=== PATIENT | male | born 1965 | race Caucasian/White ===

== ENCOUNTER → 2016-09-28 | Outpatient (CLI) | payer MEDICAID ==
[~2016-09-28] MED LIST: ALBU17IN INH; ALEV220T26 PO; AMLO5TAB2 PO; CARV12.5 PO; FLOV100A3 IN; LISI20TA3 PO; MULTCAP PO; OMEP40CA2 PO; SERT50TA PO; TRAZ50TA4 PO; VICO5TAB
== END ==
LOC: M OUTALCOH 08:13
PROVIDERS: ATTEND Psychiatry & Neurology Psychiatry
DX: Z13.9 Encounter for screening, unspecified (principal); F14.20 Cocaine dependence, uncomplicated; F10.20 Alcohol dependence, uncomplicated

== ENCOUNTER → 2016-10-01 | Outpatient (CLI) | payer OTHER ==
[2016-10-01 08:25] LABS: MEAN CORPUSCULAR HEMOGLOBIN 31.2 pg (27.0-33.0); MEAN CORPUSCULAR HGB CONC 32.5 g/dl (32.0-36.5); MEAN CORPUSCULAR VOLUME 95.8 fl (80.0-96.0); RED CELL DISTRIBUTION WIDTH 12.3 % (11.5-14.5); WHITE BLOOD COUNT 8.5 K/mm3 (4.0-10.0)
[2016-10-01 09:00] LABS: ALBUMIN 3.9 GM/DL (3.2-5.2); ALBUMIN/GLOBULIN RATIO 1.15 (1.00-1.93); ALKALINE PHOSPHATASE 62 U/L (45-117); ALT/SGPT 47 U/L (12-78); ANION GAP 7 MEQ/L (8-16); AST/SGOT 20 U/L (15-37); BILIRUBIN,TOTAL 0.3 MG/DL (0.2-1.0); BLOOD UREA NITROGEN 18 MG/DL (7-18); CALCIUM LEVEL 8.9 MG/DL (8.5-10.1); CARBON DIOXIDE LEVEL 31 MEQ/L (21-32); CHLORIDE LEVEL 101 MEQ/L (98-107); GLOMERULAR FILTRATION RATE > 60.0 (>56); GLUCOSE, FASTING 139 MG/DL (70-105); POTASSIUM SERUM 4.5 MEQ/L (3.5-5.1); SODIUM LEVEL 139 MEQ/L (136-145); TOTAL PROTEIN 7.3 GM/DL (6.4-8.2)
[2016-10-04 00:06] LABS: BENZODIAZEPINES, URINE SCREEN Negative ng/mL (Cutoff=200); METHADONE, URINE SCREEN Negative ng/mL (Cutoff=300)
== END ==
LOC: M LAB 07:59
PROVIDERS: ATTEND Student in an Organized Health Care Education/Training Program
DX: F10.10 Alcohol abuse, uncomplicated (principal); Z79.899 Other long term (current) drug therapy; Z87.898 Personal history of other specified conditions

== ENCOUNTER → 2016-10-22 | Outpatient (CLI) | payer MEDICAID, OTHER | LOC: M LAB 09:58 | PROVIDERS: ATTEND Hospitalist | DX: R76.8 Other specified abnormal immunological findings in serum (principal) ==

== ENCOUNTER → 2016-10-28 | Outpatient (RCR) | payer MEDICAID | LOC: M OUTALCOH 09-30 15:30 | PROVIDERS: ATTEND Psychiatry & Neurology Psychiatry | DX: F10.20 Alcohol dependence, uncomplicated (principal) ==

== ENCOUNTER → 2016-11-27 | Outpatient (RCR) | payer MEDICAID ==
[~2016-11-27] MED LIST changes: +TRAZ50TA11 PO; -TRAZ50TA4 PO
== END ==
LOC: M OUTALCOH 10-29 13:52
PROVIDERS: ATTEND Psychiatry & Neurology Psychiatry
DX: F14.20 Cocaine dependence, uncomplicated (principal); F10.20 Alcohol dependence, uncomplicated; F17.200 Nicotine dependence, unspecified, uncomplicated

== ENCOUNTER 2016-12-25 15:00 | Outpatient (RCR) | payer MEDICAID | END 2016-12-28 | LOC: M OUTALCOH 15:00 | PROVIDERS: ATTEND Psychiatry & Neurology Psychiatry | DX: F14.20 Cocaine dependence, uncomplicated (principal); F10.20 Alcohol dependence, uncomplicated; F17.200 Nicotine dependence, unspecified, uncomplicated ==

== ENCOUNTER 2017-01-25 16:00 | Outpatient (RCR) | payer MEDICAID | END 2017-01-28 | LOC: M OUTALCOH 16:00 | PROVIDERS: ATTEND Psychiatry & Neurology Psychiatry | DX: F14.20 Cocaine dependence, uncomplicated (principal); F10.20 Alcohol dependence, uncomplicated; F17.200 Nicotine dependence, unspecified, uncomplicated ==

== ENCOUNTER → 2017-02-22 | Outpatient (CLI) | payer OTHER ==
[2017-02-24 10:41] LABS: HCV RNA (INTERNATIONAL UNITS) 10228000 IU/mL (.); HEPATITIS C QUANTITATION See Final Results IU/mL (.)
[2017-02-25 08:06] LABS: ALT 50 IU/L (0-55); GGT 26 IU/L (0-65); HAPTOGLOBIN 299 mg/dL (34-200); NECROINFLAM SCORE 0.29 (0.00-0.17); NECROINFLAMM GRADE A1-Minimal activity (.); TOTAL BILIRUBIN 0.4 mg/dL (0.0-1.2)
== END ==
LOC: M LAB 09:59
PROVIDERS: ATTEND Internal Medicine Infectious Disease
DX: B18.2 Chronic viral hepatitis C (principal)

== ENCOUNTER → 2017-02-22 | Outpatient (CLI) | payer OTHER ==
[2017-02-22 10:46] LABS: INR 0.95
[2017-02-22 11:09] LABS: ALBUMIN 3.8 GM/DL (3.2-5.2); ALBUMIN/GLOBULIN RATIO 1.03 (1.00-1.93); BILIRUBIN,DIRECT 0.2 MG/DL (0.0-0.2); BILIRUBIN,TOTAL 0.5 MG/DL (0.2-1.0); TOTAL PROTEIN 7.5 GM/DL (6.4-8.2)
== END ==
LOC: M LAB 10:02
PROVIDERS: ATTEND Student in an Organized Health Care Education/Training Program
DX: R73.9 Hyperglycemia, unspecified (principal)

== ENCOUNTER 2017-02-26 09:00 | Outpatient (RCR) | payer MEDICAID | END 2017-02-27 | LOC: M OUTALCOH 09:00 | PROVIDERS: ATTEND Psychiatry & Neurology Psychiatry | DX: F10.20 Alcohol dependence, uncomplicated (principal); F14.20 Cocaine dependence, uncomplicated; F17.210 Nicotine dependence, cigarettes, uncomplicated ==

== ENCOUNTER → 2017-04-12 | Outpatient (REF) | payer OTHER | LOC: M SFHCPLAZ 09:02 | PROVIDERS: ATTEND Internal Medicine Infectious Disease | DX: B18.2 Chronic viral hepatitis C (principal) ==

== ENCOUNTER 2017-04-13 09:00 | Outpatient (RCR) | payer MEDICAID | END 2017-04-29 | LOC: M OUTALCOH 09:00 | PROVIDERS: ATTEND Psychiatry & Neurology Psychiatry | DX: F14.20 Cocaine dependence, uncomplicated (principal); F10.20 Alcohol dependence, uncomplicated; F17.200 Nicotine dependence, unspecified, uncomplicated ==

== ENCOUNTER 2017-04-30 15:00 | Outpatient (RCR) | payer MEDICAID | END 2017-05-30 | LOC: M OUTALCOH 15:00 | DX: F14.20 Cocaine dependence, uncomplicated (principal); F10.20 Alcohol dependence, uncomplicated; F17.200 Nicotine dependence, unspecified, uncomplicated ==

== ENCOUNTER → 2017-04-30 | Outpatient (CLI) | payer OTHER ==
[2017-04-30 11:53] LABS: ALBUMIN 3.9 GM/DL (3.2-5.2); ALKALINE PHOSPHATASE 59 U/L (45-117); ALT/SGPT 38 U/L (12-78); AST/SGOT 18 U/L (7-37); BILIRUBIN,DIRECT < 0.1 MG/DL (0.0-0.2); BILIRUBIN,TOTAL 0.4 MG/DL (0.2-1.0); TOTAL PROTEIN 7.8 GM/DL (6.4-8.2)
[2017-05-04 00:08] LABS: HEPATITIS C QUANTITATION HCV Not Detected IU/mL (.)
== END ==
LOC: M LAB 10:47
PROVIDERS: ATTEND Internal Medicine Infectious Disease
DX: B18.2 Chronic viral hepatitis C (principal)

== ENCOUNTER 2017-06-09 13:03 | Outpatient (RCR) | payer MEDICAID | END 2017-06-30 | LOC: M OUTALCOH 13:03 | DX: F14.20 Cocaine dependence, uncomplicated (principal); F10.20 Alcohol dependence, uncomplicated; F17.200 Nicotine dependence, unspecified, uncomplicated ==

== ENCOUNTER 2017-07-07 14:00 | Outpatient (RCR) | payer MEDICAID | END 2017-07-28 | LOC: M OUTALCOH 07-21 13:00 | DX: F14.20 Cocaine dependence, uncomplicated (principal); F10.20 Alcohol dependence, uncomplicated; F17.200 Nicotine dependence, unspecified, uncomplicated ==

== ENCOUNTER 2017-08-04 11:21 | Outpatient (RCR) | payer MEDICAID | END 2017-08-28 | LOC: M OUTALCOH 08-17 11:00 | DX: F14.20 Cocaine dependence, uncomplicated (principal); F10.20 Alcohol dependence, uncomplicated; F17.200 Nicotine dependence, unspecified, uncomplicated ==

== ENCOUNTER 2017-09-01 13:22 | Outpatient (RCR) | payer MEDICAID | END 2017-09-27 | LOC: M OUTALCOH 13:22 | DX: F14.20 Cocaine dependence, uncomplicated (principal); F10.20 Alcohol dependence, uncomplicated; F17.200 Nicotine dependence, unspecified, uncomplicated ==

== ENCOUNTER 2017-09-24 11:54 | Day surgery (SDC) | payer OTHER ==
[2017-09-24] MEDS: NS 1,000 ML IV (12:30)
[2017-09-24] MEDS ORDERED: fentaNYL 100 MCG/2 ML INJECTION (J3010) As Ordered (13:29)
[2017-09-24] MEDS ORDERED: PROPOFOL 500 MG/50 ML VIAL As Ordered ×2 (13:29→13:50)
[2017-09-24] MEDS ORDERED: PROPOFOL 200 MG/20 ML VIAL As Ordered (13:29)
[2017-09-24] MEDS ORDERED: LIDOCAINE 2% INJ 100 MG/5 ML SDV (FOR ANES.) As Ordered (13:29)
== END 2017-09-24 14:22 | disposition home or self-care (01) ==
LOC: M OPP 11:54
DX: Z12.11 Encounter for screening for malignant neoplasm of colon (principal); D12.3 Benign neoplasm of transverse colon; K62.1 Rectal polyp; K64.8 Other hemorrhoids; R12 Heartburn; I10 Essential (primary) hypertension; R73.03 Prediabetes; K21.9 Gastro-esophageal reflux disease without esophagitis; Z86.19 Personal history of other infectious and parasitic diseases; R06.02 Shortness of breath; F10.21 Alcohol dependence, in remission; F41.9 Anxiety disorder, unspecified; F32.9 Major depressive disorder, single episode, unspecified; M19.90 Unspecified osteoarthritis, unspecified site; M54.89 Other dorsalgia; J44.9 Chronic obstructive pulmonary disease, unspecified; F17.210 Nicotine dependence, cigarettes, uncomplicated; Z79.899 Other long term (current) drug therapy; Z80.42 Family history of malignant neoplasm of prostate; Z80.0 Family history of malignant neoplasm of digestive organs
CPT/HCPCS: 45385

== ENCOUNTER 2017-10-01 15:02 | Outpatient (RCR) | payer OTHER | END 2017-10-28 | LOC: M OUTALCOH 10-27 14:00 | DX: F14.20 Cocaine dependence, uncomplicated (principal); F10.20 Alcohol dependence, uncomplicated; F17.200 Nicotine dependence, unspecified, uncomplicated ==

== ENCOUNTER 2017-11-17 15:11 | Outpatient (RCR) | payer MEDICAID | END 2017-11-27 | LOC: M OUTALCOH 15:11 | DX: F14.20 Cocaine dependence, uncomplicated (principal); F10.20 Alcohol dependence, uncomplicated; F17.200 Nicotine dependence, unspecified, uncomplicated ==

== ENCOUNTER 2017-12-02 14:59 | Outpatient (RCR) | payer MEDICAID | END 2017-12-28 | LOC: M OUTALCOH 12-15 13:00 | DX: F14.20 Cocaine dependence, uncomplicated (principal); F10.20 Alcohol dependence, uncomplicated; F17.200 Nicotine dependence, unspecified, uncomplicated ==

== ENCOUNTER → 2017-12-11 | Outpatient (CLI) | payer OTHER ==
[2017-12-11 09:54] LABS: ALBUMIN 3.6 GM/DL (3.2-5.2); ALBUMIN/GLOBULIN RATIO 0.95 (1.00-1.93); ALKALINE PHOSPHATASE 60 U/L (45-117); ALT/SGPT 52 U/L (12-78); ANION GAP 11 MEQ/L (8-16); AST/SGOT 31 U/L (7-37); BILIRUBIN,TOTAL 0.6 MG/DL (0.2-1.0); BLOOD UREA NITROGEN 11 MG/DL (7-18); CALCIUM LEVEL 8.5 MG/DL (8.5-10.1); CARBON DIOXIDE LEVEL 29 MEQ/L (21-32); CHLORIDE LEVEL 102 MEQ/L (98-107); CREATININE FOR GFR 0.99 MG/DL (0.70-1.30); GLOMERULAR FILTRATION RATE > 60.0 (>56); GLUCOSE, FASTING 118 MG/DL (70-100); POTASSIUM SERUM 3.6 MEQ/L (3.5-5.1); SODIUM LEVEL 142 MEQ/L (136-145); TOTAL PROTEIN 7.4 GM/DL (6.4-8.2)
[2017-12-11 09:57] LABS: CREATININE, URINE 27.7 MG/DL; MAU/CREAT RATIO 971.1 MCG/MG (0.0-30.0)
[2017-12-11 10:29] LABS: ESTIMATED AVERAGE GLUCOSE 157 MG/DL (60-110); HEMOGLOBIN A1c 7.1 %
[2017-12-13 14:08] LABS: RUBELLA IgG QUALITATIVE IMMUNE (IMMUNE)
== END ==
LOC: M LAB 08:09
DX: E11.9 Type 2 diabetes mellitus without complications (principal)
CPT/HCPCS: 80053

== ENCOUNTER 2017-12-13 14:03 | Outpatient (RCR) | payer OTHER | END 2017-12-28 | LOC: M PT 14:03 | DX: Z51.89 Encounter for other specified aftercare (principal); G89.29 Other chronic pain | CPT/HCPCS: 97010 ==

== ENCOUNTER 2017-12-30 08:24 | Outpatient (RCR) | payer OTHER | END 2018-01-28 | LOC: M PT 08:24 | DX: Z51.89 Encounter for other specified aftercare (principal); G89.29 Other chronic pain | CPT/HCPCS: 97110 ==

== ENCOUNTER → 2017-12-30 | Outpatient (REF) | payer OTHER ==
[2017-12-30 19:08] LABS: TOTAL PROTEIN,RANDOM URINE 12.6 MG/DL (0.0-12.0)
== END ==
LOC: M SFHCPLAZ 09:53
DX: E11.9 Type 2 diabetes mellitus without complications (principal)
CPT/HCPCS: 84156

== ENCOUNTER → 2018-04-06 | Outpatient (REF) | payer OTHER ==
[2018-04-06 12:09] LABS: HEMATOCRIT 48.7 % (42.0-52.0); HEMOGLOBIN 16.3 g/dl (13.5-17.5); MEAN CORPUSCULAR HEMOGLOBIN 31.7 pg (27.0-33.0); MEAN CORPUSCULAR HGB CONC 33.5 g/dl (32.0-36.5); MEAN CORPUSCULAR VOLUME 94.7 fl (80.0-96.0); PLATELET COUNT, AUTOMATED 260 10^3/uL (150-450); RED BLOOD COUNT 5.14 10^6/uL (4.30-6.10); RED CELL DISTRIBUTION WIDTH 13.6 % (11.5-14.5); WHITE BLOOD COUNT 15.9 10^3/uL (4.0-10.0)
[2018-04-06 12:20] LABS: INR 0.95; PROTHROMBIN TIME 12.7 SECONDS (12.1-14.4)
[2018-04-06 12:21] LABS: PARTIAL THROMBOPLASTIN TIME 31.8 SECONDS (25.4-37.6)
[2018-04-06 12:44] LABS: ALBUMIN 4.3 GM/DL (3.2-5.2); ALBUMIN/GLOBULIN RATIO 1.13 (1.00-1.93); ALKALINE PHOSPHATASE 70 U/L (45-117); ALT/SGPT 34 U/L (12-78); ANION GAP 8 MEQ/L (8-16); AST/SGOT 19 U/L (7-37); BILIRUBIN,TOTAL 0.5 MG/DL (0.2-1.0); BLOOD UREA NITROGEN 17 MG/DL (7-18); CALCIUM LEVEL 9.9 MG/DL (8.5-10.1); CARBON DIOXIDE LEVEL 30 MEQ/L (21-32); CHLORIDE LEVEL 100 MEQ/L (98-107); CREATININE FOR GFR 0.98 MG/DL (0.70-1.30); GLOMERULAR FILTRATION RATE > 60.0 (>56); GLUCOSE, FASTING 125 MG/DL (70-100); SODIUM LEVEL 138 MEQ/L (136-145); TOTAL PROTEIN 8.1 GM/DL (6.4-8.2)
[2018-04-06 13:32] LABS: HEPATITIS A ANTIBODY IGM NEGATIVE (NEGATIVE)
[2018-04-06 13:35] LABS: ESTIMATED AVERAGE GLUCOSE 143 MG/DL (60-110); HEMOGLOBIN A1c 6.6 %
[2018-04-09 00:06] LABS: HBV HBV DNA not detected IU/mL (.); HEPATITIS C QUANTITATION HCV Not Detected IU/mL (.)
== END ==
LOC: M SFHCPLAZ 10:25
DX: R73.03 Prediabetes (principal); B18.2 Chronic viral hepatitis C; K62.5 Hemorrhage of anus and rectum

== ENCOUNTER 2018-04-19 09:54 | Emergency (ER) | payer OTHER, MEDICAID ==
[2018-04-19 10:55] LABS: BASO % 0.4 % (0.0-1.0); EOS # 0.1 10^3/uL (0.0-0.50); EOS % 0.8 % (0.0-3.0); HEMATOCRIT 43.7 % (42.0-52.0); HEMOGLOBIN 14.6 g/dl (13.5-17.5); IMMATURE GRANULOCYTE % 0.4 % (0-3.0); LYMPH # 2.7 10^3/uL (1.5-4.5); LYMPH % 27.1 % (24.0-44.0); MEAN CORPUSCULAR HEMOGLOBIN 31.3 pg (27.0-33.0); MEAN CORPUSCULAR HGB CONC 33.4 g/dl (32.0-36.5); MEAN CORPUSCULAR VOLUME 93.8 fl (80.0-96.0); MONO # 0.7 10^3/uL (0.0-0.8); NEUTROPHILS # 6.3 10^3/uL (1.8-7.7); NEUTROPHILS % 64.3 % (36.0-66.0); PLATELET COUNT, AUTOMATED 191 10^3/uL (150-450); RED BLOOD COUNT 4.66 10^6/uL (4.30-6.10); RED CELL DISTRIBUTION WIDTH 13.4 % (11.5-14.5); WHITE BLOOD COUNT 9.8 10^3/uL (4.0-10.0)
[2018-04-19 11:03] LABS: ANION GAP 6 MEQ/L (8-16); BLOOD UREA NITROGEN 11 MG/DL (7-18); CALCIUM LEVEL 9.1 MG/DL (8.5-10.1); CARBON DIOXIDE LEVEL 30 MEQ/L (21-32); CHLORIDE LEVEL 103 MEQ/L (98-107); CPK CREATINE PHOSPHOKINASE 77 U/L (39-308); CREATININE FOR GFR 0.88 MG/DL (0.70-1.30); GLOMERULAR FILTRATION RATE > 60.0 (>56); GLUCOSE, FASTING 126 MG/DL (70-100); MB/CK RELATIVE INDEX 1.69 (< OR =4); POTASSIUM SERUM 4.3 MEQ/L (3.5-5.1); SODIUM LEVEL 139 MEQ/L (136-145); TROPONIN I < 0.02 NG/ML (< 0.10)
== END 2018-04-19 12:16 | disposition left against medical advice (07) ==
LOC: M ED 09:54
DX: R07.9 Chest pain, unspecified (principal); E11.9 Type 2 diabetes mellitus without complications; I10 Essential (primary) hypertension; K21.9 Gastro-esophageal reflux disease without esophagitis; J44.9 Chronic obstructive pulmonary disease, unspecified; Z79.899 Other long term (current) drug therapy
CPT/HCPCS: 93005

== ENCOUNTER 2018-10-05 08:34 | Emergency (ER) | payer MEDICAID, OTHER ==
[~2018-10-05] VITALS: Ht 188 cm; Wt 125.7 kg
[~2018-10-05 08:34] MED LIST changes: -AMLO5TAB2 PO; +AMLO5TAB6 PO; +OMEP20CA3 PO; +SERT-141 PO; -SERT50TA PO; +TRAZ-160 PO; -TRAZ50TA11 PO; +VIIB40TA PO
[2018-10-05] MEDS ORDERED: LISINOPRIL 20 MG TAB PO ONE (09:30)
[2018-10-05] MEDS ORDERED: INDOMETHACIN 25 MG CAP PO ONE (09:30)
[2018-10-05] MEDS ORDERED: hydroCHLOROthiazide 25 MG TAB PO ONE (09:30)
[2018-10-05 09:40] VITALS: BP 180/100
[2018-10-05 09:44] LABS: HEMATOCRIT 49.4 % (42.0-52.0); HEMOGLOBIN 16.2 g/dl (13.5-17.5); MEAN CORPUSCULAR HEMOGLOBIN 30.9 pg (27.0-33.0); MEAN CORPUSCULAR HGB CONC 32.8 g/dl (32.0-36.5); MEAN CORPUSCULAR VOLUME 94.3 fl (80.0-96.0); PLATELET COUNT, AUTOMATED 259 10^3/uL (150-450); RED BLOOD COUNT 5.24 10^6/uL (4.30-6.10); WHITE BLOOD COUNT 11.1 10^3/uL (4.0-10.0)
[2018-10-05 10:09] LABS: BLOOD UREA NITROGEN 9 MG/DL (7-18); CREATININE FOR GFR 0.88 MG/DL (0.70-1.30); GLOMERULAR FILTRATION RATE > 60.0 (>56); GLUCOSE, FASTING 139 MG/DL (70-100)
[2018-10-05 10:10] LABS: CALCIUM LEVEL 9.1 MG/DL (8.5-10.1); CARBON DIOXIDE LEVEL 28 MEQ/L (21-32); CHLORIDE LEVEL 105 MEQ/L (98-107); POTASSIUM SERUM 4.3 MEQ/L (3.5-5.1); SODIUM LEVEL 138 MEQ/L (136-145); URIC ACID 7.6 MG/DL (3.5-7.2)
--- NOTE | 2018-10-05 10:22 | REP ---
RIGHT FOOT, FOUR VIEWS: Four views of the right foot performed. No acute fracture or dislocation is seen. There is a small inferior calcaneal spur. There is mild joint space narrowing and subchondral sclerosis at the 1st metatarsophalangeal joint. IMPRESSION: Mild degenerative changes. Electronically Signed by Bandar Multani MD 10/05/2018 03:38 P
[2018-10-05] MEDS ORDERED: INDO25CA PO (10:27)
[2018-10-05 10:38] VITALS: BP 160/98
== END 2018-10-05 10:40 | disposition home or self-care (01) ==
LOC: M ED 08:34
DX: M10.9 Gout, unspecified (principal); E11.9 Type 2 diabetes mellitus without complications; J45.909 Unspecified asthma, uncomplicated; I10 Essential (primary) hypertension; K21.9 Gastro-esophageal reflux disease without esophagitis; Z79.899 Other long term (current) drug therapy; Z79.84 Long term (current) use of oral hypoglycemic drugs; F17.210 Nicotine dependence, cigarettes, uncomplicated

== ENCOUNTER 2018-10-13 13:51 | Inpatient (IN) | payer MEDICAID, OTHER ==
[~2018-10-13] VITALS: Ht 188 cm; Wt 122.3 kg
[~2018-10-13 13:51] MED LIST changes: +INDO25CA PO; +NICOTINE 21MG/24HR 1 EA TRANSDERMAL TD SCH
[2018-10-13 14:28] LABS: HEMATOCRIT 49.4 % (42.0-52.0); HEMOGLOBIN 16.3 g/dl (13.5-17.5); MEAN CORPUSCULAR HEMOGLOBIN 30.3 pg (27.0-33.0); MEAN CORPUSCULAR VOLUME 91.8 fl (80.0-96.0); PLATELET COUNT, AUTOMATED 236 10^3/uL (150-450); RED BLOOD COUNT 5.38 10^6/uL (4.30-6.10); WHITE BLOOD COUNT 8.1 10^3/uL (4.0-10.0)
[2018-10-13] MEDS ORDERED: NICOTINE 21MG/24HR 1 EA TRANSDERMAL TD ONE (15:15)
[2018-10-13 15:37] LABS: AMPHETAMINES LEVEL URINE NEGATIVE (NEGATIVE); BARBITURATES URINE NEGATIVE (NEGATIVE); BENZODIAZEPINES URINE NEGATIVE (NEGATIVE); CANNABINOIDS URINE NEGATIVE (NEGATIVE); COCAINE METABOLITE URINE NEGATIVE (NEGATIVE); METHADONE URINE NEGATIVE (NEGATIVE); OPIATES URINE NEGATIVE (NEGATIVE); PHENCYCLIDINE URINE NEGATIVE (NEGATIVE)
[2018-10-13 15:41] LABS: ACETAMINOPHEN LEVEL < 2.0 UG/ML (10.0-30.0); ALBUMIN 4.1 GM/DL (3.2-5.2); ALT/SGPT 60 U/L (12-78); BILIRUBIN,DIRECT 0.1 MG/DL (0.0-0.2); BILIRUBIN,TOTAL 0.3 MG/DL (0.2-1.0); BLOOD UREA NITROGEN 14 MG/DL (7-18); CALCIUM LEVEL 8.9 MG/DL (8.5-10.1); CARBON DIOXIDE LEVEL 31 MEQ/L (21-32); CHLORIDE LEVEL 104 MEQ/L (98-107); ETHYL ALCOHOL (ETHANOL) 0.213 % (0.000-0.010); GLOMERULAR FILTRATION RATE > 60.0 (>56); GLUCOSE, FASTING 166 MG/DL (70-100); POTASSIUM SERUM 3.9 MEQ/L (3.5-5.1); SALICYLATE LEVEL 2.5 MG/DL (5.0-30.0); SODIUM LEVEL 141 MEQ/L (136-145); THYROID STIMULATING HORMONE 0.801 uIU/ML (0.358-3.740); TOTAL PROTEIN 7.5 GM/DL (6.4-8.2)
[2018-10-13] MEDS ORDERED: LORazepam 2 MG/ML VIAL (J2060) IM STA (16:39)
[2018-10-13] MEDS ORDERED: diphenhydrAMINE INJ 50MG/ML VIAL (J1200) IM STA (16:39)
[2018-10-13] MEDS ORDERED: ALBUTEROL 90 MCG/ACT 8GM HFA INHALER INH PRN (21:00)
[2018-10-13] MEDS ORDERED: OXAZEPAM 15 MG CAP PO ONE (21:00)
[2018-10-13] MEDS ORDERED: OLANZapine ORAL DISINTEGRATING TAB 5MG PO PRN (21:00)
[2018-10-13] MEDS ORDERED: MAALOX 30 ML SUSP *UDC PO PRN (21:00)
[2018-10-13] MEDS ORDERED: LORazepam 2 MG TAB PO PRN (21:00)
[2018-10-13] MEDS ORDERED: MOM 30ML SUSPENSION UDC PO PRN (21:00)
[2018-10-13 22:00] VITALS: BP 163/96
[2018-10-13] MEDS ORDERED: INDO25CA PO (22:11)
[2018-10-13] MEDS ORDERED: VENTAER INH (22:11)
[2018-10-13] MEDS ORDERED: METF500T4 PO (22:16)
[2018-10-13] MEDS ORDERED: SERT-155 PO (22:16)
[2018-10-13] MEDS ORDERED: ARNU1INH PO (22:16)
[2018-10-13] MEDS ORDERED: QUET5TAB PO (22:16)
[2018-10-13] MEDS ORDERED: ADV500INH INH (22:16)
[2018-10-13] MEDS ORDERED: LISI40TA PO (22:16)
[2018-10-13] MEDS ORDERED: HYDR25TAB PO (22:16)
[2018-10-13] MEDS ORDERED: ATOR40TA75 PO (22:16)
[2018-10-13] MEDS ORDERED: PATIENT COMMENT (22:21)
[2018-10-13] MEDS: THIAMINE 100 MG TAB PO SCH (22:40)
[2018-10-13] MEDS: ACETAMINOPHEN TAB 650MG DOSE (2X325MG) PO PRN (22:43)
[2018-10-14] VITALS (7 sets, daily range): BP systolic 138–190; BP diastolic 86–112
[2018-10-14] MEDS ORDERED: UNRESOLVED PATIENT OWN MED ORDER XX SCH (00:01)
[2018-10-14] MEDS: traZODone 50 MG TAB PO PRN ×2 (01:59→20:40)
[2018-10-14] MEDS: hydroCHLOROthiazide 25 MG TAB PO SCH (06:40)
[2018-10-14] MEDS: LISINOPRIL 40 MG TAB PO SCH (06:40)
[2018-10-14] MEDS: LORazepam 2 MG TAB PO PRN ×2 (07:54→17:23)
[2018-10-14] MEDS: NICOTINE 21MG/24HR 1 EA TRANSDERMAL TD SCH (08:29)
[2018-10-14] MEDS: OMEPRAZOLE 20 MG CAP PO SCH (08:29)
[2018-10-14] MEDS: INDOMETHACIN 25 MG CAP PO SCH ×3 (08:29→20:43)
[2018-10-14] MEDS: MULTIVITAMINS/MINERALS THERAP 1 TAB PO SCH (08:29)
[2018-10-14] MEDS: FOLIC ACID 1 MG TAB PO SCH (08:29)
[2018-10-14] MEDS: ATORVASTATIN 20 MG TAB PO SCH (08:29)
[2018-10-14] MEDS: THIAMINE 100 MG TAB PO SCH ×2 (08:30→20:40)
[2018-10-14] MEDS ORDERED: VIIBRYD 40 MG PO SCH (09:00)
[2018-10-14] MEDS ORDERED: amLODIPine 5 MG TAB PO SCH (09:00)
[2018-10-14] MEDS ORDERED: ARNUITY ELLIPTA (PATIENT'S OWN MED) INH SCH (09:00)
[2018-10-14] MEDS ORDERED: CARVedilol 12.5 MG TAB PO SCH (09:00)
[2018-10-14] MEDS ORDERED: LISINOPRIL 20 MG TAB PO SCH (09:00)
--- NOTE | 2018-10-14 11:32 | HPEPDOC ---
General Date of Admission October 13, 2018 at 20:49 Attending Physician: RAMONA ALLAN MD Chief Complaint The patient is a 53-year-old male admitted with a reason for visit of Unspecified Depressive Disorder. Source: Patient, RN/ History of Present Illness Patient is a 53-year-old male, past medical history significant for obesity, diabetes mellitus type 2, obstructive sleep apnea, noncompliant with CPAP, hypertension, hyperlipidemia, brought to the inpatient psychiatric unit on account of suicidal ideation. Patient states girlfriend was recently just diagnosed with a terminal illness. Upset. He called his criminal justice social worker, who made an appointment appointment with him to discuss. Patient, however, was unable to keep the appointment and concerned because of treads patient had made earlier called the police. He reports he has not been compliant with CPAP use because he. was told he had very mild sleep apnea. He denies chest pain, shortness of breath, weakness, abdominal discomfort, diarrhea or constipation. Home Medications Scheduled Atorvastatin Calcium (Atorvastatin Calcium) 40 Mg Tablet, 40 MG PO DAILY for HIGH CHOLESTEROL, (Reported) NOT PICKED UP AT PHARMACY YET Carvedilol (Carvedilol) 12.5 Mg Tab, 12.5 MG PO DAILY for BLOOD PRESSURE, (Reported) LAST PICKED UP MAY 2018 (30 DAY SUPPLY); REFILL WAITING AT PHARMACY Fluticasone Furoate (Arnuity Ellipta) 100 Mcg Blst.w.dev, 1 PUFF PO DAILY for ASTHMA, (Reported) NOT PICKED UP AT PHARMACY YET Hydrochlorothiazide (Hydrochlorothiazide) 25 Mg Tablet, 25 MG PO DAILY for HBP, (Reported) NOT PICKED UP AT PHARMACY YET Lisinopril (Lisinopril) 40 Mg Tablet, 40 MG PO DAILY for HBP, (Reported) NOT PICKED UP AT PHARMACY YET Metformin HCl (Metformin HCl ER) 500 Mg Tab.er.24h, 500 MG PO QPM for DIABETES, (Reported) NOT PICKED UP AT PHARMACY YET Omeprazole (Omeprazole) 20 Mg Cap, 20 MG PO DAILY for HEARTBURN, (Reported) PICKED UP MAY 2018 (30 DAY SUPPLY); REFILL WAITING AT PHARMACY Quetiapine Fumarate (Quetiapine Fumarate) 50 Mg Tablet, 50 MG PO DAILY for MOOD, (Reported) NOT PICKED UP AT PHARMACY YET Salmeterol/Fluticasone (Advair 500-50 Diskus) 1 Each Blst.w.dev, 1 PUFF INH BID for ASTHMA, (Reported) NOT PICKED UP AT PHARMACY YET Sertraline HCl (Sertraline HCl) 50 Mg Tablet, 50 MG PO DAILY for MOOD, (Reported) NOT PICKED UP AT PHARMACY YET Vilazodone HCl (Viibryd) 40 Mg Tab, 40 MG PO DAILY for MOOD, (Reported) PICKED UP MAY 2018 (30 DAY SUPPLY) Scheduled PRN Albuterol Sulfate (Ventolin Hfa) 18 Gm Hfa.aer.ad, 2 PUFF INH Q4H PRN for SOB/W HEEZING, (Reported) NOT PICKED UP AT PHARMACY YET Indomethacin (Indomethacin) 25 Mg Capsule, 25 MG PO TID PRN for ARTHRITIS, (Reported) PICKED UP 10/05/18 Miscellaneous Medications [Patient Comment] , for , (Reported) MED LIST RECEIVED FROM [facility] Allergies Coded Allergies: No Known Allergies (Verified , 09/15/17) Past Medical History Medical History Hypertension Hyperlipidemia Type 2 diabetes mellitus COPD Obesity Nicotine dependence Obstructive sleep apnea Gout Depression and anxiety Surgical History Nasal surgery Jaw surgery Right knee enteroplasty Family History Father with gout Social History * Smoker: greater than 1 pack/day Alcohol: heavy Drugs: denies A-FIB/CHADSVASC A-FIB History Current/History of A-Fib/PAF?: No Current Oral Anticoagulant The: No Review of Systems Other systems A 10 point pertinent ROS was completed, negative except as stated in the HPI Physical Examination Other physical findings GENERAL: morbidly obese male in no acute distress SKIN : Warm, dry intact HEENT: Atraumatic, normocephalic, PERRL, moist mucous membrane CARDIOVASCULAR: Regular rate and rhythm, S1S2, no JVD, no edema, distal pulses + and palpable RESP: CTAB, no accessory muscle use noted ABDOMEN: BS+ non distended non tender MS: no joint deformities NEURO: Alert and oriented x 3, CN2-12 grossly intact PSYCH: no anxiety or agitation, appropriate mood and affect. Vital Signs Vital Signs Date Time Temp Pulse Resp B/P (MAP) Pulse Ox O2 Delivery O2 Flow Rate FiO2 10/14/18 10:09 97.8 84 18 138/86 (103) 10/14/18 08:50 Room Air 10/13/18 22:00 90 Laboratory Data Labs 24H Laboratory Tests 2 10/13/18 14:04: Nucleated Red Blood Cells % (auto) 0.0, Anion Gap 6L, Glomerular Filtration Rate > 60.0, Calcium Level 8.9, Aspartate Amino Transf (AST/SGOT) 33, Alanine Aminotransferase (ALT/SGPT) 60, Alkaline Phosphatase 61, Total Bilirubin 0.3, Direct Bilirubin 0.1, Total Protein 7.5, Albumin 4.1, Albumin/Globulin Ratio 1.21, Thyroid Stimulating Hormone (TSH) 0.801, Salicylates Level 2.5L, Urine Amphetamines Screen NEGATIVE, Urine Benzodiazepines Screen NEGATIVE, Urine Opiates Screen NEGATIVE, Urine Methadone Screen NEGATIVE, Acetaminophen Level < 2.0L, Urine Barbiturates Screen NEGATIVE, Urine Phencyclidine Screen NEGATIVE, Urine Cocaine Metabolite Screen NEGATIVE, Urine Cannabinoids Screen NEGATIVE, Ethyl Alcohol Level 0.213H CBC/BMP Laboratory Tests 10/13/18 14:04 Red Blood Count 5.38, Mean Corpuscular Volume 91.8, Mean Corpuscular Hemoglobin 30.3, Mean Corpuscular Hemoglobin Concent 33.0, Red Cell Distribution Width 13.3 Assessment/Plan Hypertension -Continue lisinopril, hydrochlorothiazide and Coreg -Blood pressure monitoring. Unit protocol T2DM -Continue metformin -Caloric controlled diabetic diet Metabolic Syndrome -Discussed with patient. Obesity -Therapeutic lifestyle changes discussed with patient MAYRA -Noncompliant with CPAP use -Patient states he was told he has only mild sleep apnea -Discussed with him the importance of CPAP use Nicotine dependence -At this time is not willing to quit Suicide Ideation -Management by primary team DVT prophylaxis -Frequently ambulatory -Not indicated for patient at this time Plan / VTE VTE Prophylaxis Ordered?: No VTE Exclusion Mechanical Proph: Low Risk for VTE GENA SHAH October 14, 2018 11:32 ZEKE PANG MD October 14, 2018 12:44
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
[2018-10-14] MEDS: metFORMIN XR 500MG TAB *GLUCOPHAGE XR PO SCH (17:12)
--- NOTE | 2018-10-14 18:54 | ECGEPIP ---
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
[2018-10-14] MEDS: QUEtiapine FUMARATE 50 MG TAB PO SCH (20:40)
[2018-10-14] MEDS: SERTRALINE HCL 50 MG TAB PO SCH (20:40)
[2018-10-14] MEDS: ACETAMINOPHEN TAB 650MG DOSE (2X325MG) PO PRN (20:43)
[2018-10-15 06:23] VITALS: BP 150/102
[2018-10-15 06:45] VITALS: BP 150/102
[2018-10-15] MEDS ORDERED: CARVedilol 12.5 MG TAB PO ONE (08:00)
[2018-10-15] MEDS: NICOTINE 21MG/24HR 1 EA TRANSDERMAL TD SCH (08:09)
[2018-10-15] MEDS: MULTIVITAMINS/MINERALS THERAP 1 TAB PO SCH (08:10)
[2018-10-15] MEDS: OMEPRAZOLE 20 MG CAP PO SCH (08:10)
[2018-10-15] MEDS: ATORVASTATIN 20 MG TAB PO SCH (08:10)
[2018-10-15] MEDS: FOLIC ACID 1 MG TAB PO SCH (08:10)
[2018-10-15] MEDS: hydroCHLOROthiazide 25 MG TAB PO SCH (08:10)
[2018-10-15] MEDS: INDOMETHACIN 25 MG CAP PO SCH ×3 (08:10→20:07)
[2018-10-15] MEDS: THIAMINE 100 MG TAB PO SCH ×2 (08:10→20:07)
[2018-10-15] MEDS: LISINOPRIL 40 MG TAB PO SCH (08:10)
--- NOTE | 2018-10-15 13:52 | MHIPNPDOC ---
[facility] Progress Note Progress Note DATE OF SERVICE: 10/15/18 HISTORY: 53-year-old male with a history of alcoholism, recently depressed due to his girlfriends cirrhosis., He drank and became depressed and suicidal. Now asking for immediate discharge VITAL SIGNS: See below. NEW TEST RESULTS: No new results. CURRENT MEDICATIONS: See below. MENTAL STATUS EXAMINATION: Patient is a 53-year old male, who is wanting discharge. Speech: Is. Normal. Language skills are adequate. Thought processes including:. Denies hallucinations, delusions, obsessions, compulsions or phobias. Thought content: Focused on discharge. Abstract reasoning, and computation:. Normal. Description of associations: Loose association. Description of abnormal or psychotic thoughts:. No psychotic thought. Judgment: Poor. Insight:, Limited. Orientation: Full. Recent and remote memory: Intact. Attention span and concentration: Intact. Language:. No abnormalities. Fund of knowledge:. Full. Mood: Irritated. Affect:, Congruent. DIAGNOSES: 1. Situational depression. 2., Alcohol dependence.. ASSESSMENT: Chronic alcohol was on in this 53-year-old male with depressive symptoms. Recommendation of further alcohol treatment, refused by patient MANAGEMENT PLAN: Observation, evaluation and recommendation of further alcohol treatment. TIME SPENT:, 30 minutes. Vital Signs Vital Signs Date Time Temp Pulse Resp B/P (MAP) Pulse Ox O2 Delivery O2 Flow Rate FiO2 10/15/18 08:11 104 154/90 10/15/18 06:45 97.2 16 10/14/18 08:50 Room Air 10/13/18 22:00 90 Laboratory Data 24H Labs Laboratory Tests 2 10/14/18 17:09: Bedside Glucose (Misc Panel) 158H 10/15/18 05:49: Bedside Glucose (Misc Panel) 130H Current Medications Current Medications Acetaminophen (Tylenol Tab) 650 mg Q6HP PRN PO HEADACHE or DISCOMFORT Last administered on 10/14/18at 20:43; Start 10/13/18 at 21:00 Al Hydrox/Mg Hydrox/Simethicone (Mylanta) 30 ml Q4HP PRN PO HEARTBURN/INDIGESTION Last administered on 10/14/18at 12:36; Start 10/13/18 at 21:00 Albuterol Sulfate (Proventil, Ventolin Hfa) 2 puff Q4HP PRN INH SHORTNESS OF BREATH; Start 10/13/18 at 21:00 Amlodipine Besylate (Norvasc) 5 mg DAILY PO ; Start 10/14/18 at 09:00; Status Cancel Atorvastatin Calcium (Lipitor) 40 mg DAILY PO Last administered on 10/15/18at 08:10; Start 10/14/18 at 09:00 Carvedilol (COReg) 12.5 mg DAILY PO Last administered on 10/14/18at 06:41; Start 10/14/18 at 09:00; Stop 10/15/18 at 07:45; Status DC Carvedilol (COReg) 25 mg BID PO ; Start 10/15/18 at 21:00 Diphenhydramine HCl (Benadryl) 50 mg STAT STAT IM Last administered on 10/13/18at 16:50; Start 10/13/18 at 16:39; Stop 10/13/18 at 16:40; Status DC Folic Acid (Folic Acid) 1 mg DAILY PO Last administered on 10/15/18at 08:10; Start 10/14/18 at 09:00 Home Med (Med Rec Complete!) ASDIRECTED XX ; Start 10/13/18 at 22:30; Stop 10/13/18 at 22:30; Status DC Hydrochlorothiazide (Hydrodiuril) 25 mg DAILY PO Last administered on 10/15/18at 08:10; Start 10/14/18 at 09:00 Indomethacin (Indocin) 25 mg TID PO Last administered on 10/15/18at 08:10; Start 10/14/18 at 09:00; Stop 10/15/18 at 21:00 Lisinopril (Prinivil) 20 mg DAILY PO ; Start 10/14/18 at 09:00; Status Cancel Lisinopril (Prinivil) 40 mg DAILY PO Last administered on 10/15/18at 08:10; Start 10/14/18 at 09:00 Lorazepam (Ativan) 2 mg ASDIRECTED PRN PO SEE PROTOCOL Last administered on 10/14/18at 17:23; Start 10/13/18 at 21:00 Lorazepam (Ativan) 2 mg Q4HP PRN PO ANXIETY/AGITATION Last administered on 10/15/18at 06:33; Start 10/13/18 at 21:00 Lorazepam (Ativan) 2 mg STAT STAT IM Last administered on 10/13/18at 16:50; Start 10/13/18 at 16:39; Stop 10/13/18 at 16:40; Status DC Magnesium Hydroxide (Milk Of Magnesia) 30 ml DAILYPRN PRN PO CONSTIPATION; Start 10/13/18 at 21:00 Metformin HCl (Glucophage Xr) 500 mg DAILY@18 PO Last administered on 10/14/18at 17:12; Start 10/14/18 at 18:00 Miscellaneous (Unresolved Patient Own Med Order) SEE LABEL COMMENTS DAILY XX ; Start 10/13/18 at 09:00 Miscellaneous (Unresolved Patient Own Med Order) SEE LABEL COMMENTS UNRESOLVED XX ; Start 10/14/18 at 00:01; Stop 10/14/18 at 00:01; Status DC Multivitamins (Theragram-M) 1 tab DAILY PO Last administered on 10/15/18at 08:10; Start 10/14/18 at 09:00 Nicotine (Nicoderm Cq 21mg) 1 patch DAILY TD ; Start 10/13/18 at 09:00; Stop 10/13/18 at 22:37; Status DC Nicotine (Nicoderm Cq 21mg) 1 patch DAILY TD Last administered on 10/15/18at 08:09; Start 10/14/18 at 09:00 Olanzapine (ZyPREXA ZYDIS) 10 mg Q4HP PRN PO ANXIETY/AGITATION; Start 10/13/18 at 21:00 Omeprazole (PriLOSEC) 20 mg DAILY PO Last administered on 10/15/18at 08:10; Start 10/14/18 at 09:00 Patient Own Medication (Patient'S Own Med) ARNUITY ELLIPTA 1 PUFF ... DAILY INH ; Start 10/14/18 at 09:00; Status UNV Patient Own Medication (Patient'S Own Med) VIIBRYD 40 MG PO DAILY DAILY PO ; Start 10/14/18 at 09:00; Status Cancel Quetiapine Fumarate (SEROquel) 50 mg QHS PO Last administered on 10/14/18at 20:40; Start 10/14/18 at 21:00 Sertraline HCl (Zoloft) 50 mg QHS PO Last administered on 10/14/18at 20:40; Start 10/14/18 at 21:00 Thiamine HCl (Thiamine HCl) 100 mg BID PO Last administered on 10/15/18at 08:10; Start 10/13/18 at 21:00; Stop 10/16/18 at 20:59 Trazodone HCl (Desyrel) 50 mg QHSP PRN PO INSOMNIA Last administered on 10/14/18at 20:40; Start 10/13/18 at 21:00 Allergies Coded Allergies: No Known Allergies (Verified , 09/15/17) A-FIB/CHADSVASC A-FIB History Current/History of A-Fib/PAF?: No Current Oral Anticoagulant The: No ZEKE PANG MD October 15, 2018 13:52
[2018-10-15 14:27] VITALS: BP 158/88
--- NOTE | 2018-10-15 16:47 | IPNPDOC ---
Subjective Date Seen The patient was seen on 10/15/18. Subjective Chief Complaint/HPI Patient is a 53-year-old male, past medical history significant for obesity, diabetes mellitus type 2, obstructive sleep apnea, noncompliant with CPAP, hypertension, hyperlipidemia, brought to the inpatient psychiatric unit on acco unt of suicidal ideation. Events since last encounter Consulted for follow-up for patient's persistent elevated blood pressure. Patient denies chest pain or shortness of breath. Objective Physical Examination Other physical findings GENERAL: morbidly obese male in no acute distress SKIN : Warm, dry intact HEENT: Atraumatic, normocephalic, PERRL, moist mucous membrane CARDIOVASCULAR: Regular rate and rhythm, S1S2, no JVD, no edema, distal pulses + and palpable RESP: CTAB, no accessory muscle use noted ABDOMEN: BS+ non distended non tender MS: no joint deformities NEURO: Alert and oriented x 3, CN2-12 grossly intact PSYCH: no anxiety or agitation, appropriate mood and affect. A-FIB/CHADSVASC A-FIB History Current/History of A-Fib/PAF?: No Current Oral Anticoagulant The: No Assessment /Plan Assessment Hypertension -Increased dose coreg -Blood pressure monitoring per unit protocol -Patient has requested his medications been not adjusted further -He would prefer further adjustments to be made by his primary care provider who he states know him well and better T2DM -Continue metformin -Caloric controlled diabetic diet Metabolic Syndrome -Discussed with patient. Obesity -Therapeutic lifestyle changes discussed with patient MAYRA -Noncompliant with CPAP use -Patient states he was told he has only mild sleep apnea -Discussed with him the importance of CPAP use Nicotine dependence -At this time is not willing to quit Suicide Ideation -Management by primary team DVT prophylaxis -Frequently ambulatory -Not indicated for patient at this time Plan/VTE VTE Prophylaxis Ordered?: No VTE Exclusion Mechanical Proph: Low Risk for VTE VS, I&O, 24H, Fishbone Vital Signs/I&O Vital Signs Date Time Temp Pulse Resp B/P (MAP) Pulse Ox O2 Delivery O2 Flow Rate FiO2 10/15/18 08:11 104 154/90 10/15/18 06:45 97.2 16 10/14/18 08:50 Room Air 10/13/18 22:00 90 Laboratory Data 24H LABS Laboratory Tests 2 10/14/18 17:09: Bedside Glucose (Misc Panel) 158H 10/15/18 05:49: Bedside Glucose (Misc Panel) 130H [facility] October 15, 2018 11:09
[2018-10-15] MEDS: metFORMIN XR 500MG TAB *GLUCOPHAGE XR PO SCH (17:20)
[2018-10-15 18:30] VITALS: BP 140/90
[2018-10-15] MEDS: SERTRALINE HCL 50 MG TAB PO SCH (20:07)
[2018-10-15] MEDS: CARVedilol 12.5 MG TAB PO SCH (20:08)
[2018-10-15] MEDS: traZODone 50 MG TAB PO PRN (20:08)
[2018-10-15] MEDS: QUEtiapine FUMARATE 50 MG TAB PO SCH (20:08)
[2018-10-15] MEDS: ACETAMINOPHEN TAB 650MG DOSE (2X325MG) PO PRN (20:09)
[2018-10-15 22:34] VITALS: BP 138/89
[2018-10-16] MEDS: LORazepam 2 MG TAB PO PRN (00:35)
[2018-10-16 06:43] VITALS: BP 140/80
[2018-10-16 06:45] VITALS: BP 140/80
[2018-10-16] MEDS: ATORVASTATIN 20 MG TAB PO SCH (08:25)
[2018-10-16] MEDS: THIAMINE 100 MG TAB PO SCH (08:25)
[2018-10-16] MEDS: FOLIC ACID 1 MG TAB PO SCH (08:26)
[2018-10-16] MEDS: LISINOPRIL 40 MG TAB PO SCH (08:26)
[2018-10-16] MEDS: MULTIVITAMINS/MINERALS THERAP 1 TAB PO SCH (08:26)
[2018-10-16] MEDS: CARVedilol 12.5 MG TAB PO SCH ×2 (08:26→21:12)
[2018-10-16] MEDS: OMEPRAZOLE 20 MG CAP PO SCH (08:26)
[2018-10-16] MEDS: NICOTINE 21MG/24HR 1 EA TRANSDERMAL TD SCH (08:27)
[2018-10-16] MEDS: hydroCHLOROthiazide 25 MG TAB PO SCH (08:27)
[2018-10-16 15:00] VITALS: BP 136/88
--- NOTE | 2018-10-16 16:01 | MHIPNPDOC ---
[facility] Progress Note Progress Note DATE OF SERVICE: 10/16/18 HISTORY: 53-year-old male with alcohol abuse. Long history of drug and alcohol use, most recently upset about girlfriend. He was cirrhosis. VITAL SIGNS: See below. NEW TEST RESULTS: None. CURRENT MEDICATIONS: See below. MENTAL STATUS EXAMINATION: Patient is a 53-year old male, who is admitted for recent alcohol abuse and depression. Speech: Is. Normal. Language skills are normal. Thought processes including:. No disturbance of thought process. Thought content:. No disturbance of thought content. Abstract reasoning, and computation:, Able to abstract. Description of associations: Loose association. Description of abnormal or psychotic thoughts:. No psychotic thoughts. Judgment:, Poor. Insight: Fair. Orientation: Full. Recent and remote memory:. No disturbance. Attention span and concentration:, Poor. Language:, As above. Fund of knowledge:. Full Mood: Euthymic. Affect:, Congruent. DIAGNOSES: 1. Substance dependence. 2., Recent alcohol use. 3., Relationship stressors. ASSESSMENT:, 53-year-old male was not been following his psychiatric follow-up care and is not in any substance abuse treatment MANAGEMENT PLAN:. Increase Zoloft and return to outpatient care with recom mendations to seek alcohol counseling again. TIME SPENT: 30 minutes. Vital Signs Vital Signs Date Time Temp Pulse Resp B/P (MAP) Pulse Ox O2 Delivery O2 Flow Rate FiO2 10/16/18 08:26 84 138/90 10/16/18 06:43 97.4 16 10/14/18 08:50 Room Air 10/13/18 22:00 90 Laboratory Data 24H Labs Laboratory Tests 2 10/15/18 17:18: Bedside Glucose (Misc Panel) 134H 10/16/18 06:11: Bedside Glucose (Misc Panel) 130H Current Medications Current Medications Acetaminophen (Tylenol Tab) 650 mg Q6HP PRN PO HEADACHE or DISCOMFORT Last administered on 10/15/18at 20:09; Start 10/13/18 at 21:00 Al Hydrox/Mg Hydrox/Simethicone (Mylanta) 30 ml Q4HP PRN PO HEARTBURN/INDIGESTION Last administered on 10/14/18at 12:36; Start 10/13/18 at 21:00 Albuterol Sulfate (Proventil, Ventolin Hfa) 2 puff Q4HP PRN INH SHORTNESS OF BREATH; Start 10/13/18 at 21:00 Amlodipine Besylate (Norvasc) 5 mg DAILY PO ; Start 10/14/18 at 09:00; Status Cancel Atorvastatin Calcium (Lipitor) 40 mg DAILY PO Last administered on 10/16/18 08:25; Start 10/14/18 at 09:00 Carvedilol (COReg) 12.5 mg DAILY PO Last administered on 10/14/18at 06:41; Start 10/14/18 at 09:00; Stop 10/15/18 at 07:45; Status DC Carvedilol (COReg) 25 mg BID PO Last administered on 10/16/18 08:26; Start 10/15/18 at 21:00 Diphenhydramine HCl (Benadryl) 50 mg STAT STAT IM Last administered on at 16:50; Start 10/13/18 at 16:39; Stop 10/13/18 at 16:40; Status DC Folic Acid (Folic Acid) 1 mg DAILY PO Last administered on 10/16/18 08:26; Start 10/14/18 at 09:00 Home Med (Med Rec Complete!) ASDIRECTED XX ; Start 10/13/18 at 22:30; Stop 10/13/18 at 22:30; Status DC Hydrochlorothiazide (Hydrodiuril) 25 mg DAILY PO Last administered on 10/16/18at 08:27; Start 10/14/18 at 09:00 Indomethacin (Indocin) 25 mg TID PO Last administered on 10/15/18at 20:07; Start 10/14/18 at 09:00; Stop 10/15/18 at 21:00; Status DC Lisinopril (Prinivil) 20 mg DAILY PO ; Start 10/14/18 at 09:00; Status Cancel Lisinopril (Prinivil) 40 mg DAILY PO Last administered on 10/16/18 08:26; Start 10/14/18 at 09:00 Lorazepam (Ativan) 2 mg ASDIRECTED PRN PO SEE PROTOCOL Last administered on 10/16/18at 00:35; Start 10/13/18 at 21:00 Lorazepam (Ativan) 2 mg Q4HP PRN PO ANXIETY/AGITATION Last administered on 10/15/18at 06:33; Start 10/13/18 at 21:00 Lorazepam (Ativan) 2 mg STAT STAT IM Last administered on 10/13/18at 16:50; Start 10/13/18 at 16:39; Stop 10/13/18 at 16:40; Status DC Magnesium Hydroxide (Milk Of Magnesia) 30 ml DAILYPRN PRN PO CONSTIPATION; Start 10/13/18 at 21:00 Metformin HCl (Glucophage Xr) 500 mg DAILY@18 PO Last administered on 10/15/18at 17:20; Start 10/14/18 at 18:00 Miscellaneous (Unresolved Patient Own Med Order) SEE LABEL COMMENTS DAILY XX ; Start 10/13/18 at 09:00 Miscellaneous (Unresolved Patient Own Med Order) SEE LABEL COMMENTS UNRESOLVED XX ; Start 10/14/18 at 00:01; Stop 10/14/18 at 00:01; Status DC Multivitamins (Theragram-M) 1 tab DAILY PO Last administered on 10/16/18at 08:26; Start 10/14/18 at 09:00 Nicotine (Nicoderm Cq 21mg) 1 patch DAILY TD ; Start 10/13/18 at 09:00; Stop 10/13/18 at 22:37; Status DC Nicotine (Nicoderm Cq 21mg) 1 patch DAILY TD Last administered on 10/16/18at 08:27; Start 10/14/18 at 09:00 Olanzapine (ZyPREXA ZYDIS) 10 mg Q4HP PRN PO ANXIETY/AGITATION Last administered on 10/16/18at 00:35; Start 10/13/18 at 21:00 Omeprazole (PriLOSEC) 20 mg DAILY PO Last administered on 10/16/18at 08:26; Start 10/14/18 at 09:00 Patient Own Medication (Patient'S Own Med) ARNUITY ELLIPTA 1 PUFF ... DAILY INH ; Start 10/14/18 at 09:00; Status UNV Patient Own Medication (Patient'S Own Med) [id number] 40 MG PO DAILY DAILY PO ; Start 10/14/18 at 09:00; Status Cancel Quetiapine Fumarate (SEROquel) 50 mg QHS PO Last administered on 10/15/18at 20:08; Start 10/14/18 at 21:00 Sertraline HCl (Zoloft) 50 mg QHS PO Last administered on 10/15/18at 20:07; Start 10/14/18 at 21:00 Thiamine HCl (Thiamine HCl) 100 mg BID PO Last administered on 10/16/18 08:25; Start 10/13/18 at 21:00; Stop 10/16/18 at 20:59 Trazodone HCl (Desyrel) 50 mg QHSP PRN PO INSOMNIA Last administered on 10/15/18at 20:08; Start 10/13/18 at 21:00 Allergies Coded Allergies: No Known Allergies (Verified , 09/15/17) A-FIB/CHADSVASC A-FIB History Current/History of A-Fib/PAF?: No Current Oral Anticoagulant The: No Treatment Treatment ordered: NONE ZEKE PANG MD October 16, 2018 16:01
--- NOTE | 2018-10-16 16:53 | IPNPDOC ---
Subjective Date Seen The patient was seen on 10/16/18. Subjective Chief Complaint/HPI Patient is a 53-year-old male, past medical history significant for obesity, diabetes mellitus type 2, obstructive sleep apnea, noncompliant with CPAP, hypertension, hyperlipidemia, brought to the inpatient psychiatric unit on acco unt of suicidal ideation. Events since last encounter Feels better about his blood pressure, however, complains of shortness of breath intermittently due to not getting his inhaler that he usually uses at home Other systems Objective Physical Examination Other physical findings GENERAL: morbidly obese male in no acute distress SKIN : Warm, dry intact HEENT: Atraumatic, normocephalic, PERRL, moist mucous membrane CARDIOVASCULAR: Regular rate and rhythm, S1S2, no JVD, no edema, distal pulses + and palpable RESP: CTAB, no accessory muscle use noted ABDOMEN: BS+ non distended non tender MS: no joint deformities NEURO: Alert and oriented x 3, CN2-12 grossly intact PSYCH: no anxiety or agitation, appropriate mood and affect. A-FIB/CHADSVASC A-FIB History Current/History of A-Fib/PAF?: No Current Oral Anticoagulant The: No Assessment /Plan Assessment Hypertension Coreg dose was increased with better blood pressure control -continue current dose T2DM -Continue metformin -Caloric controlled diabetic diet COPD -Continue Albuterol -restart advair patient takes at home. Metabolic Syndrome -Discussed with patient. Obesity -Therapeutic lifestyle changes discussed with patient MAYRA -Noncompliant with CPAP use -Patient states he was told he has only mild sleep apnea -Discussed with him the importance of CPAP use Nicotine dependence -At this time is not willing to quit Suicide Ideation -Management by primary team DVT prophylaxis -Frequently ambulatory -Not indicated for patient at this time Plan/VTE VTE Prophylaxis Ordered?: No VTE Exclusion Mechanical Proph: Low Risk for VTE VS, I&O, 24H, Fishbone Vital Signs/I&O Vital Signs Date Time Temp Pulse Resp B/P (MAP) Pulse Ox O2 Delivery O2 Flow Rate FiO2 10/16/18 15:00 84 136/88 10/16/18 06:43 97.4 16 10/14/18 08:50 Room Air 10/13/18 22:00 90 Laboratory Data 24H LABS Laboratory Tests 2 10/15/18 17:18: Bedside Glucose (Misc Panel) 134H 10/16/18 06:11: Bedside Glucose (Misc Panel) 130H GENA SHAH MARKETING OPERATIONS ANALYST October 16, 2018 16:53
[2018-10-16] MEDS: metFORMIN XR 500MG TAB *GLUCOPHAGE XR PO SCH (17:05)
[2018-10-16 18:00] VITALS: BP 140/88
[2018-10-16] MEDS ORDERED: SERTRALINE 100 MG TAB PO SCH (21:00)
[2018-10-16] MEDS: QUEtiapine FUMARATE 50 MG TAB PO SCH (21:10)
[2018-10-16] MEDS: traZODone 50 MG TAB PO PRN (21:11)
[2018-10-16] MEDS: ACETAMINOPHEN TAB 650MG DOSE (2X325MG) PO PRN (21:13)
[2018-10-16] MEDS: ADVAIR HFA 230/21MCG INHALER INH SCH (21:14)
[2018-10-16 22:29] VITALS: BP 140/82
[2018-10-17] VITALS: BP 140/82
[2018-10-17 06:44] VITALS: BP 130/85
[2018-10-17] MEDS: NICOTINE 21MG/24HR 1 EA TRANSDERMAL TD SCH (09:00)
[2018-10-17] MEDS: ADVAIR HFA 230/21MCG INHALER INH SCH (09:00)
[2018-10-17] MEDS: LISINOPRIL 40 MG TAB PO SCH (09:05)
[2018-10-17] MEDS: FOLIC ACID 1 MG TAB PO SCH (09:05)
[2018-10-17] MEDS: ATORVASTATIN 20 MG TAB PO SCH (09:05)
[2018-10-17 09:06] VITALS: BP 130/85
[2018-10-17] MEDS: hydroCHLOROthiazide 25 MG TAB PO SCH (09:06)
[2018-10-17] MEDS: MULTIVITAMINS/MINERALS THERAP 1 TAB PO SCH (09:06)
[2018-10-17] MEDS: CARVedilol 12.5 MG TAB PO SCH (09:06)
[2018-10-17] MEDS: OMEPRAZOLE 20 MG CAP PO SCH (09:06)
[2018-10-17] MEDS ORDERED: SERT-138 PO (11:51)
--- NOTE | 2018-10-17 13:44 | MHDSPDOC ---
[facility] Discharge Summary Discharge Summary DATE OF ADMISSION: October 13, 2018 at 20:49 DATE OF DISCHARGE: October 17, 2018 at 12:43 DISCHARGE DIAGNOSES: 1. Major depression. 2., Substance abuse. REASON FOR ADMISSION:, Patient became upset due to his girlfriend's illness and made suicidal statements CONSULTANTS INVOLVED: None TREATMENT AND PROGRESS ON THE UNIT :. Patient's vital signs improved. Patient's mood improved. He agreed to outpatient alcohol and mental health treatment. HOSPITAL COURSE: Vital signs stabilized and mood improved DISCHARGE ASSESSMENT:. Patient has chronic alcohol difficulties and inconsistent follow-up both in mental health and substance use. He was encouraged to restart those treatments MENTAL STATUS EXAMINATION ON DISCHARGE: Patient is a 53-year old male, who is being discharged following suicidal statements in the midst of alcohol use. Speech is. Normal. Language skills are normal. Thought processes including: No disturbance of thought processes. Thought content:. Initially, and denial of alcohol treatment and use. Abstract reasoning, and computation: Able to abstract and compute. Description of associations: No loose association. Description of abnormal or psychotic thoughts:. No psychotic thoughts. Judgment:, Poor. Insight:, Poor. Orientation to, fully oriented. Recent and remote memory:, No difficulties of recent or remote memory. Attention span and concentration:. No disturbance of attention span or concentration. Language:. No abnormalities of language. Fund of knowledge:. Fund of knowledge. Mood:. Good. Affect: Congruent. MEDICATIONS ON DISCHARGE: -. Sertraline 100 mg for depression. -. Seroquel 50 mg for sleep and depression. -HCTZ and carvedilol for hypertension. PLAN/FOLLOWUP ARRANGEMENTS: [facility] outpatient clinic. The amount of time spent in the coordination of care for this patient was appro ximately, 45 minutes. Vital Signs/I&Os Vital Signs Date Time Temp Pulse Resp B/P (MAP) Pulse Ox O2 Delivery O2 Flow Rate FiO2 10/17/18 09:06 89 130/85 10/17/18 06:44 98.0 16 10/14/18 08:50 Room Air 10/13/18 22:00 90 Laboratory Data Labs 24H Laboratory Tests 2 10/16/18 17:03: Bedside Glucose (Misc Panel) 156H 10/17/18 06:29: Bedside Glucose (Misc Panel) 122H Medications Scheduled Atorvastatin Calcium (Atorvastatin Calcium) 40 Mg Tablet, 40 MG PO DAILY for HIGH CHOLESTEROL, (Reported) NOT PICKED UP AT PHARMACY YET Carvedilol (Carvedilol) 12.5 Mg Tab, 12.5 MG PO DAILY for BLOOD PRESSURE, (Reported) LAST PICKED UP MAY 2018 (30 DAY SUPPLY); REFILL WAITING AT PHARMACY Fluticasone Furoate (Arnuity Ellipta) 100 Mcg Blst.w.dev, 1 PUFF PO DAILY for ASTHMA, (Reported) NOT PICKED UP AT PHARMACY YET Hydrochlorothiazide (Hydrochlorothiazide) 25 Mg Tablet, 25 MG PO DAILY for HBP, (Reported) NOT PICKED UP AT PHARMACY YET Lisinopril (Lisinopril) 40 Mg Tablet, 40 MG PO DAILY for HBP, (Reported) NOT PICKED UP AT PHARMACY YET Metformin HCl (Metformin HCl ER) 500 Mg Tab.er.24h, 500 MG PO QPM for DIABETES, (Reported) NOT PICKED UP AT PHARMACY YET Omeprazole (Omeprazole) 20 Mg Cap, 20 MG PO DAILY for HEARTBURN, (Reported) PICKED UP MAY 2018 (30 DAY SUPPLY); REFILL WAITING AT PHARMACY Quetiapine Fumarate (Quetiapine Fumarate) 50 Mg Tablet, 50 MG PO DAILY for MOOD, (Reported) NOT PICKED UP AT PHARMACY YET Salmeterol/Fluticasone (Advair 500-50 Diskus) 1 Each Blst.w.dev, 1 PUFF INH BID for ASTHMA, (Reported) NOT PICKED UP AT PHARMACY YET Sertraline HCl (Sertraline HCl) 100 Mg Tablet, 100 MG PO QHS for Depression, #7 Vilazodone HCl (Viibryd) 40 Mg Tab, 40 MG PO DAILY for MOOD, (Reported) PICKED UP MAY 2018 (30 DAY SUPPLY) Scheduled PRN Albuterol Sulfate (Ventolin Hfa) 18 Gm Hfa.aer.ad, 2 PUFF INH Q4H PRN for SOB/WHEEZING, (Reported) NOT PICKED UP AT PHARMACY YET Indomethacin (Indomethacin) 25 Mg Capsule, 25 MG PO TID PRN for ARTHRITIS, (Reported) PICKED UP 10/05/18 Miscellaneous Medications [Patient Comment] , for , (Reported) MED LIST RECEIVED FROM [facility] Allergies Coded Allergies: No Known Allergies (Verified , 09/15/17) ZEKE PANG MD October 17, 2018 13:43
== END 2018-10-17 12:43 | disposition home or self-care (01) | DRG 754 ==
LOC: M ED 13:51 → M ED INP 20:49 → M PSY 21:50
PROVIDERS: ADMIT Psychiatry & Neurology Psychiatry; ATTEND Psychiatry & Neurology Child & Adolescent Psychiatry
DX: F32.9 Major depressive disorder, single episode, unspecified (principal); E11.9 Type 2 diabetes mellitus without complications; I10 Essential (primary) hypertension; Z79.899 Other long term (current) drug therapy; E78.5 Hyperlipidemia, unspecified; J44.9 Chronic obstructive pulmonary disease, unspecified; E66.9 Obesity, unspecified; F17.200 Nicotine dependence, unspecified, uncomplicated; G47.33 Obstructive sleep apnea (adult) (pediatric); M10.9 Gout, unspecified; F41.9 Anxiety disorder, unspecified

== ENCOUNTER → 2018-12-05 | Outpatient (REF) | payer OTHER ==
[~2018-12-05] MED LIST changes: +ADV500INH INH; +ARNU1INH PO; +ATOR40TA75 PO; +HYDR25TAB PO; +LISI40TA PO; +METF500T4 PO; -NICOTINE 21MG/24HR 1 EA TRANSDERMAL TD SCH; -OMEP20CA3 PO; +OMEP20CA4 PO; +PATIENT COMMENT; +QUET5TAB PO; +SERT-138 PO; +SERT-155 PO; -TRAZ-160 PO; +TRAZ-252 PO; +VENTAER INH
[2018-12-05 15:56] LABS: HEMATOCRIT 46.8 % (42.0-52.0); HEMOGLOBIN 14.9 g/dl (13.5-17.5); MEAN CORPUSCULAR HGB CONC 31.8 g/dl (32.0-36.5); MEAN CORPUSCULAR VOLUME 94.4 fl (80.0-96.0); PLATELET COUNT, AUTOMATED 227 10^3/uL (150-450); RED BLOOD COUNT 4.96 10^6/uL (4.30-6.10); WHITE BLOOD COUNT 10.4 10^3/uL (4.0-10.0)
[2018-12-05 15:59] LABS: ALBUMIN 3.9 GM/DL (3.2-5.2); ALT/SGPT 45 U/L (12-78); BILIRUBIN,TOTAL 0.4 MG/DL (0.2-1.0); BLOOD UREA NITROGEN 9 MG/DL (7-18); CALCIUM LEVEL 9.2 MG/DL (8.5-10.1); CARBON DIOXIDE LEVEL 31 MEQ/L (21-32); CHLORIDE LEVEL 104 MEQ/L (98-107); CHOLESTEROL LEVEL 96 MG/DL (< 200); CHOLESTEROL LEVEL 96 MG/DL (<200); CREATININE FOR GFR 0.97 MG/DL (0.70-1.30); GLOMERULAR FILTRATION RATE > 60.0 (>56); GLUCOSE, FASTING 111 MG/DL (70-100); HDL CHOLESTEROL 27 MG/DL (> 40); HDL CHOLESTEROL 27 MG/DL (>40); LDL CHOLESTEROL 28 MG/DL (<100); POTASSIUM SERUM 4.6 MEQ/L (3.5-5.1); SODIUM LEVEL 140 MEQ/L (136-145); TOTAL PROTEIN 7.7 GM/DL (6.4-8.2); TRIGLYCERIDES LEVEL 207 MG/DL (<150)
[2018-12-05 16:13] LABS: HEMOGLOBIN A1c 7.6 %
== END ==
LOC: M SFHCPLAZ 14:27
DX: E11.9 Type 2 diabetes mellitus without complications (principal); E78.00 Pure hypercholesterolemia, unspecified

== ENCOUNTER → 2019-03-27 | Outpatient (CLI) | payer OTHER ==
[~2019-03-27] MED LIST changes: +INDO-16 PO; -INDO25CA PO; +LISI20TA20 PO; -LISI20TA3 PO; +METF-791 PO; -METF500T4 PO; -OMEP40CA2 PO; +OMEP40CA97 PO; -SERT-155 PO; +SERT50TA29 PO
--- NOTE | 2019-03-27 08:27 | REP ---
Clinical: Hepatitis C. Technique: Real time drake scale ultrasound examination using curved array transducer. Findings: Liver is hyperechoic suggesting fatty infiltration and includes 1.4 x 1.2 x 1.5 cm of 1.1 x 0.8 x 1.2 cm benign appearing hepatic cysts. No further hepatic lesions or abnormality identified. The pancreas is incompletely evaluated due to interposed bowel gas but visualized portions appear normal. The gallbladder is normal and without gallstones, wall thickening, or pericholecystic fluid. No biliary ductal dilatation is appreciated and the common bile duct measures 5.8 mm diameter. Right kidney is normal in reniform shape without hydronephrosis and measures 12.3 x 6.0 x 5.9 cm. No ascites. Impression: 1. Hepatic steatosis with benign hepatic cysts. Electronically Signed by Lam Goode MD 03/27/2019 08:19 A
== END ==
LOC: M RAD 07:19
PROVIDERS: ATTEND Internal Medicine
DX: K76.0 Fatty (change of) liver, not elsewhere classified (principal); K76.89 Other specified diseases of liver; B19.20 Unspecified viral hepatitis C without hepatic coma

== ENCOUNTER → 2020-06-11 | Outpatient (CLI) | payer OTHER ==
[~2020-06-11] MED LIST changes: +AMLO1TAB24 PO; -AMLO5TAB6 PO; -METF-791 PO; +METF-838 PO; +OMEP1CAP73 PO; -OMEP20CA4 PO
== END ==
LOC: M LABSMTC 14:20
PROVIDERS: ATTEND Family Medicine
DX: Z20.822 Contact with and (suspected) exposure to COVID-19 (principal)

== ENCOUNTER → 2020-09-11 | Outpatient (REF) | payer OTHER ==
[~2020-09-11] MED LIST changes: +FLOV100A IN; -FLOV100A3 IN; +HYDR-3490 PO; -HYDR25TAB PO; -LISI40TA PO; +LISI40TA4 PO; +QUET50TA3 PO; -QUET5TAB PO
[2020-09-11 14:12] LABS: BASO % 0.5 % (0.0-1.0); EOS # 0.1 10^3/uL (0.0-0.5); EOS % 0.6 % (0.0-3.0); HEMATOCRIT 48.7 % (42.0-52.0); HEMOGLOBIN 15.4 g/dl (13.5-17.5); LYMPH # 2.6 10^3/uL (1.5-5.0); LYMPH % 31.5 % (24.0-44.0); MEAN CORPUSCULAR HEMOGLOBIN 30.7 pg (27.0-33.0); MEAN CORPUSCULAR HGB CONC 31.6 g/dl (32.0-36.5); MONO # 0.9 10^3/uL (0.0-0.8); MONO % 11.3 % (2.0-8.0); NEUTROPHILS # 4.5 10^3/uL (1.5-8.5); NEUTROPHILS % 55.7 % (36.0-66.0); PLATELET COUNT, AUTOMATED 161 10^3/uL (150-450); RED BLOOD COUNT 5.02 10^6/uL (4.30-6.10); WHITE BLOOD COUNT 8.1 10^3/uL (4.0-10.0)
[2020-09-11 17:56] LABS: ALT/SGPT 32 U/L (12-78); BILIRUBIN,TOTAL 0.5 MG/DL (0.2-1.0); BLOOD UREA NITROGEN 11 MG/DL (7-18); CALCIUM LEVEL 9.4 MG/DL (8.5-10.1); CARBON DIOXIDE LEVEL 33 MEQ/L (21-32); CHLORIDE LEVEL 104 MEQ/L (98-107); CHOLESTEROL LEVEL 100 MG/DL (<200); CK-MB VALUE MASS 2.9 NG/ML (<3.6); CPK CREATINE PHOSPHOKINASE 82 U/L (39-308); CREATININE FOR GFR 0.77 MG/DL (0.70-1.30); GLOMERULAR FILTRATION RATE > 60.0 (>56); GLUCOSE, FASTING 105 MG/DL (70-100); MB/CK RELATIVE INDEX 3.54 (< OR =4); POTASSIUM SERUM 4.4 MEQ/L (3.5-5.1); SODIUM LEVEL 141 MEQ/L (136-145); TRIGLYCERIDES LEVEL 76 MG/DL (<150)
[2020-09-11 17:57] LABS: ALBUMIN 3.3 GM/DL (3.2-5.2); CHOLESTEROL RISK RATIO 2.857 (<5); HDL CHOLESTEROL 35 MG/DL (>40); LDL CHOLESTEROL 50 MG/DL (<100); NON-HDL-C 65 MG/DL; TOTAL PROTEIN 6.8 GM/DL (6.4-8.2); TROPONIN I 0.02 NG/ML (< 0.10)
== END ==
LOC: M SFHCPLAZ 09:06
PROVIDERS: ATTEND Family Medicine
DX: E78.00 Pure hypercholesterolemia, unspecified (principal); E11.9 Type 2 diabetes mellitus without complications; R07.9 Chest pain, unspecified; Z72.89 Other problems related to lifestyle

== ENCOUNTER 2020-11-07 06:17 | Emergency (ER) | payer OTHER ==
[~2020-11-07] VITALS: Ht 182.9 cm; Wt 100.0 kg
== END 2020-11-07 06:55 | disposition left against medical advice (07) ==
LOC: M ED 06:17
DX: Z53.21 Procedure and treatment not carried out due to patient leaving prior to being seen by health care provider (principal)

== ENCOUNTER 2020-12-09 02:13 | Emergency (ER) | payer OTHER ==
[~2020-12-09] VITALS: Ht 188 cm; Wt 112.0 kg
[~2020-12-09 02:13] MED LIST changes: -LISI20TA20 PO; +LISI20TA37 PO; +OMEP40CA4 PO; -OMEP40CA97 PO; -QUET50TA3 PO; +QUET50TA4 PO
[2020-12-09 02:23] VITALS: BP 240/127
== END 2020-12-09 02:30 | disposition left against medical advice (07) ==
LOC: EDBD 02:13 → M ED 02:13
DX: R45.89 Other symptoms and signs involving emotional state (principal); E11.9 Type 2 diabetes mellitus without complications; I10 Essential (primary) hypertension; G47.33 Obstructive sleep apnea (adult) (pediatric); Z79.899 Other long term (current) drug therapy; Z79.84 Long term (current) use of oral hypoglycemic drugs; F17.210 Nicotine dependence, cigarettes, uncomplicated

== ENCOUNTER 2020-12-18 09:50 | Inpatient (IN) | payer OTHER ==
[~2020-12-18] VITALS: Ht 188 cm; Wt 111.1 kg
[2020-12-18] MEDS: NICOTINE 21MG/24HR 1 EA TRANSDERMAL TD SCH (09:00)
[~2020-12-18 09:50] MED LIST changes: +LISI20TA20 PO; -LISI20TA37 PO; +QUET50TA3 PO; -QUET50TA4 PO
[2020-12-18] MEDS ORDERED: lisinopriL 40 MG TAB PO ONE (10:10)
[2020-12-18] MEDS: CARVedilol 12.5 MG TAB PO ONE ×2 (10:28→12:24)
[2020-12-18 10:53] LABS: BASO % 0.3 % (0.0-1.0); EOS % 0.5 % (0.0-3.0); HEMATOCRIT 44.9 % (42.0-52.0); HEMOGLOBIN 14.6 g/dl (13.5-17.5); LYMPH # 2.2 10^3/uL (1.5-5.0); LYMPH % 24.7 % (24.0-44.0); MEAN CORPUSCULAR HEMOGLOBIN 30.7 pg (27.0-33.0); MEAN CORPUSCULAR HGB CONC 32.5 g/dl (32.0-36.5); MEAN CORPUSCULAR VOLUME 94.3 fl (80.0-96.0); MONO % 11.7 % (2.0-8.0); NEUTROPHILS # 5.5 10^3/uL (1.5-8.5); NEUTROPHILS % 62.6 % (36.0-66.0); PLATELET COUNT, AUTOMATED 180 10^3/uL (150-450); RED BLOOD COUNT 4.76 10^6/uL (4.30-6.10); WHITE BLOOD COUNT 8.7 10^3/uL (4.0-10.0)
[2020-12-18 11:25] LABS: ALBUMIN 3.2 GM/DL (3.2-5.2); ALT/SGPT 39 U/L (12-78); BILIRUBIN,DIRECT 0.2 MG/DL (0.0-0.2); BILIRUBIN,TOTAL 0.7 MG/DL (0.2-1.0); BLOOD UREA NITROGEN 7 MG/DL (7-18); CALCIUM LEVEL 8.7 MG/DL (8.5-10.1); CARBON DIOXIDE LEVEL 33 MEQ/L (21-32); CHLORIDE LEVEL 108 MEQ/L (98-107); CK-MB VALUE MASS 3.8 NG/ML (<3.6); CPK CREATINE PHOSPHOKINASE 107 U/L (39-308); CREATININE FOR GFR 0.62 MG/DL (0.70-1.30); GLOMERULAR FILTRATION RATE > 60.0 (>56); GLUCOSE, FASTING 63 MG/DL (70-100); MB/CK RELATIVE INDEX 3.55 (< OR =4); NT-PRO BNP 4783 PG/ML (<125); SODIUM LEVEL 143 MEQ/L (136-145); TOTAL PROTEIN 6.7 GM/DL (6.4-8.2); TROPONIN I 0.04 NG/ML (< 0.10)
[2020-12-18] MEDS ORDERED: LABETALOL 100MG/20ML VIAL IV STA ×2 (11:56→13:14)
--- NOTE | 2020-12-18 11:59 | REP ---
INDICATION: DYSPNEA/COUGH COMPARISON: 11/10/2020. TECHNIQUE: PA/Lateral FINDINGS: Lungs: I suspect mild patchy atelectasis or infiltrate in each lung base. Upper lobes are clear. Heart: Normal in size. Mediastinum: Mediastinal silhouette unremarkable. Pleural angles: Unremarkable.. Bones and soft tissues: Unremarkable. IMPRESSION: Mild bibasilar atelectasis/infiltrate. <Electronically signed by Bandar Multani > 12/18/20 1553
[2020-12-18] MEDS ORDERED: COMBIVENT RESPIMAT 100-20MCG INHALER 4GM INH ONE (12:00)
[2020-12-18] MEDS ORDERED: FUROSEMIDE 40MG/4ML VIAL (J1940) IV ONE (12:15)
[2020-12-18] MEDS ORDERED: ACETAMINOPHEN TAB 650MG DOSE (2X325MG) PO PRN (13:15)
[2020-12-18] MEDS ORDERED: GLIP5TAB8 PO (13:22)
[2020-12-18] MEDS ORDERED: FLUT1INH3 INH (13:22)
[2020-12-18] MEDS ORDERED: ALLO300T2 PO (13:22)
[2020-12-18] MEDS ORDERED: ATOR80TA59 PO (13:22)
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
[2020-12-18] MEDS ORDERED: IPRATROPIUM 0.5MG/ALBUTEROL 2.5MG INH SOL UD 3ML (DUONEB) NEB PRN (13:50)
[2020-12-18] MEDS ORDERED: methylPREDNISolone 125MG 2ML VIAL IV ONE (13:50)
[2020-12-18] MEDS: IPRATROPIUM 0.5MG/ALBUTEROL 2.5MG INH SOL UD 3ML (DUONEB) NEB SCH ×2 (14:18→19:23)
[2020-12-18 15:25] VITALS: BP 186/122
[2020-12-18] MEDS ORDERED: LABETALOL 100MG/20ML VIAL IV PRN (16:45)
[2020-12-18] MEDS ORDERED: BENZONATATE 100 MG CAP PO PRN (16:55)
[2020-12-18] MEDS ORDERED: SLF 3 ML SYR IV PRN (17:25)
--- NOTE | 2020-12-18 17:37 | ECGEPIP ---
[facility] - ED Test Date: 2020-12-18 Pat Name: REBEKA RENAE Department: Room: - Gender: Male Cytology Technologist: LR : [id number] Requested By: TOBIAS Sharma Order Number: [id number] Reading MD: Denver Gomez Measurements Intervals [place] Rate: 68 P: 64 AL: 224 QRS: 9 QRSD: 90 T: 88 QT: 382 QTc: 406 Interpretive Statements Sinus rhythm with marked sinus arrhythmia with 1st degree AV block POOR R WAVE PROGRESSION Nonspecific T wave abnormality SIMILAR TO 11/10/20 Electronically Signed on 12-18-2020 17:37:07 EDT by Denver Gomez
[2020-12-18 20:00] VITALS: BP 172/89
[2020-12-18] MEDS: RAMELTEON 8 MG TAB (ROZEREM) PO SCH (20:29)
[2020-12-18] MEDS: CARVedilol 12.5 MG TAB PO SCH (20:30)
[2020-12-18] MEDS: SLF 3 ML SYR IV SCH (20:32)
[2020-12-19] VITALS (7 sets, daily range): BP systolic 139–163; BP diastolic 66–91
[2020-12-19] MEDS: IPRATROPIUM 0.5MG/ALBUTEROL 2.5MG INH SOL UD 3ML (DUONEB) NEB SCH ×4 (02:08→19:28)
[2020-12-19 06:08] LABS: HEMATOCRIT 42.9 % (42.0-52.0); HEMOGLOBIN 14.2 g/dl (13.5-17.5); MEAN CORPUSCULAR HEMOGLOBIN 30.7 pg (27.0-33.0); MEAN CORPUSCULAR HGB CONC 33.1 g/dl (32.0-36.5); MEAN CORPUSCULAR VOLUME 92.9 fl (80.0-96.0); PLATELET COUNT, AUTOMATED 184 10^3/uL (150-450); RED BLOOD COUNT 4.62 10^6/uL (4.30-6.10); WHITE BLOOD COUNT 9.6 10^3/uL (4.0-10.0)
[2020-12-19] MEDS: SLF 3 ML SYR IV SCH ×3 (06:23→20:08)
[2020-12-19 06:31] LABS: BLOOD UREA NITROGEN 12 MG/DL (7-18); CALCIUM LEVEL 8.4 MG/DL (8.5-10.1); CARBON DIOXIDE LEVEL 33 MEQ/L (21-32); CHLORIDE LEVEL 102 MEQ/L (98-107); CREATININE FOR GFR 0.75 MG/DL (0.70-1.30); GLOMERULAR FILTRATION RATE > 60.0 (>56); GLUCOSE, FASTING 171 MG/DL (70-100); POTASSIUM SERUM 3.9 MEQ/L (3.5-5.1); SODIUM LEVEL 138 MEQ/L (136-145)
[2020-12-19] MEDS: CARVedilol 12.5 MG TAB PO SCH ×2 (08:08→20:08)
[2020-12-19] MEDS: metFORMIN XR 500MG TAB *GLUCOPHAGE XR PO SCH (08:08)
[2020-12-19] MEDS: glipiZIDE (GLUCOTROL) 5 MG TAB PO SCH (08:09)
[2020-12-19] MEDS: lisinopriL 40 MG TAB PO SCH (08:09)
[2020-12-19] MEDS: allopurinoL 300 MG TAB PO SCH (08:09)
[2020-12-19] MEDS: ATORVASTATIN 20 MG TAB PO SCH (08:09)
[2020-12-19] MEDS: OMEPRAZOLE 20 MG CAP PO SCH (08:09)
[2020-12-19] MEDS: methylPREDNISolone 40MG 1ML VIAL IV SCH (08:10)
[2020-12-19] MEDS: ENOXAPARIN 40MG/0.4ML SYRINGE (J1650 PER 10MG) SC SCH (08:10)
[2020-12-19] MEDS: NICOTINE 21MG/24HR 1 EA TRANSDERMAL TD SCH (08:11)
--- NOTE | 2020-12-19 16:40 | IPNPDOC ---
Text Note Date of Service The patient was seen on 12/19/20. NOTE SUBJECTIVE: Mr. Aguilar reports continued ADRIAN and lower extremity swelling. He would like to go home soon but understands that he needs to stay longer so that he does not risk returning to the hospital for this same issue. PHYSICAL EXAM: VITAL SIGNS: see below GENERAL APPEARANCE: well appearing middle aged male, sitting up in bed with NC in place, NAD HEENT: Atraumatic, normocephalic. Eyes are anicteric. Mucous membranes are pink and moist CARDIOVASCULAR: NSR regular rhythm, no noted murmurs LUNGS: Faint bibasilar crackles to mid lung wallace ABDOMEN: Normoactive sounds, soft, nondistended. No rebound tenderness or guarding. EXTREMITIES: 2+ extremity edema to low ayon, no apparent rashes/petechiae. NEUROLOGICAL: Awake, speech is clear, AOx3 LABORATORY STUDIES: Reviewed, please see below. RADIOLOGY STUDIES: ASSESSMENT: Patient is 55 year old male with PMH COPD with 40-80 pack years smoking history, alcohol abuse, MAYRA not using his CPAP, HTN, HLD, Depression/anxiety presented to the ED with complaints of ongoing SOB with mild b/l ankle edema admitted for mild COPD exacerbation and concern for new onset CHF. PLAN: # Dyspnea: Presentation is concerning for a very mild COPD exacerbation versus a new onset heart failure in the setting of heavy alcohol use, CXR showing increased fluid status, lower extremity edema and elevated pBNP. Echocardiogram is pending and patient has been tolerating lasix without difficulty. BP remains well controlled but he still requires supplemental oxygen and appears clinically fluid overloaded. Will stop steroids as this appears more clinically c/w heart failure. Meds: Lasix 40mg IV x1 now and likely repeat in the afternoon Nebulizers scheduled and PRN Coreg 25mg BID Lisinopril 40mg daily Echo pending Daily weights strict I/O fluid restriction 1500cc/day # HTN urgency: Patient initially presented with SBP >200 which has improved following two doses of Labetalol and initiation of his home medications. Meds: Lisinopril 40mg daily Coreg 25mg BID # Elevated TSH: Possible hypothyroidism contributing to heart failure presentation, will obtain FT4. # Metabolic disorder with pre diabetes: Patient is obese with BMI of 32 and has prediabetes. Will continue to have consistent carbohydrate diet and will provide ISS. # MAYRA: Patient is not on CPAP however has occasionally required supplemental oxygen overnight. Will recommend he follow up with PCM for repeat sleep study. # Depression/anxiety: Patient does not appear to be taking any antidepressants, he is also currently in the process of discontinuing alcohol use. He may require additional resources after discharge. Will likely recommend outpatient alcohol recovery resources. # Alcohol Use Disorder: Patient is >2 weeks post last drink of alcohol. No evidence to require CIWA protocol at this time. DISPO: PCU on tele DIET: Cardiac DVT PROPHY: Lovenox CONSULTS: None DISCHARGE: Anticipate 24-48 more hours pending stabilization of BP and further diuresis VS,Fishbone, I+O VS, Fishbone, I+O Laboratory Tests 12/18/20 10:09 12/19/20 05:23 Vital Signs Date Time Temp Pulse Resp B/P (MAP) Pulse Ox O2 Delivery O2 Flow Rate FiO2 12/19/20 08:08 84 139/66 12/19/20 08:00 97.0 18 92 Room Air 12/19/20 04:00 2.0 I&O- Last 24 Hours up to 6 AM 12/19/20 06:00 Intake Total 1551 ml Output Total 2350 ml Balance -799 ml SIERRA SHIELDS MD [facility] Dec 19, 2020 09:41
[2020-12-19] MEDS ORDERED: FUROSEMIDE 40MG/4ML VIAL (J1940) IV ONE ×2 (16:45→21:30)
[2020-12-19] MEDS: RAMELTEON 8 MG TAB (ROZEREM) PO SCH (20:08)
[2020-12-20] VITALS: BP 140/73
[2020-12-20] MEDS: IPRATROPIUM 0.5MG/ALBUTEROL 2.5MG INH SOL UD 3ML (DUONEB) NEB SCH ×2 (02:00→07:51)
[2020-12-20 04:00] VITALS: BP 154/87
[2020-12-20 05:55] LABS: HEMATOCRIT 44.3 % (42.0-52.0); HEMOGLOBIN 14.5 g/dl (13.5-17.5); MEAN CORPUSCULAR HEMOGLOBIN 30.5 pg (27.0-33.0); MEAN CORPUSCULAR HGB CONC 32.7 g/dl (32.0-36.5); MEAN CORPUSCULAR VOLUME 93.1 fl (80.0-96.0); PLATELET COUNT, AUTOMATED 217 10^3/uL (150-450); RED BLOOD COUNT 4.76 10^6/uL (4.30-6.10); WHITE BLOOD COUNT 15.9 10^3/uL (4.0-10.0)
[2020-12-20 06:07] LABS: ALBUMIN 3.1 GM/DL (3.2-5.2); BLOOD UREA NITROGEN 16 MG/DL (7-18); CALCIUM LEVEL 8.5 MG/DL (8.5-10.1); CARBON DIOXIDE LEVEL 33 MEQ/L (21-32); CHLORIDE LEVEL 103 MEQ/L (98-107); CREATININE FOR GFR 0.79 MG/DL (0.70-1.30); GLOMERULAR FILTRATION RATE > 60.0 (>56); GLUCOSE, FASTING 121 MG/DL (70-100); MAGNESIUM LEVEL 1.2 MG/DL (1.8-2.4); PHOSPHORUS LEVEL 3.6 MG/DL (2.5-4.9); POTASSIUM SERUM 3.7 MEQ/L (3.5-5.1); SODIUM LEVEL 143 MEQ/L (136-145)
[2020-12-20] MEDS: SLF 3 ML SYR IV SCH (06:29)
[2020-12-20 08:00] VITALS: BP 158/89
[2020-12-20] MEDS ORDERED: MAG SULF 1GM/100ML (MAG RUN) 1 GM in IV 1 EA IV ONE (09:00)
[2020-12-20] MEDS: metFORMIN XR 500MG TAB *GLUCOPHAGE XR PO SCH (09:01)
[2020-12-20] MEDS: glipiZIDE (GLUCOTROL) 5 MG TAB PO SCH (09:01)
[2020-12-20 09:02] VITALS: BP 158/89
[2020-12-20] MEDS: allopurinoL 300 MG TAB PO SCH (09:02)
[2020-12-20] MEDS: CARVedilol 12.5 MG TAB PO SCH (09:02)
[2020-12-20] MEDS: OMEPRAZOLE 20 MG CAP PO SCH (09:02)
[2020-12-20] MEDS: lisinopriL 40 MG TAB PO SCH (09:02)
[2020-12-20] MEDS: ATORVASTATIN 20 MG TAB PO SCH (09:02)
[2020-12-20] MEDS: methylPREDNISolone 40MG 1ML VIAL IV SCH (09:03)
[2020-12-20] MEDS: ENOXAPARIN 40MG/0.4ML SYRINGE (J1650 PER 10MG) SC SCH (09:03)
[2020-12-20] MEDS: NICOTINE 21MG/24HR 1 EA TRANSDERMAL TD SCH (09:04)
[2020-12-20] MEDS ORDERED: FUROSEMIDE 40MG/4ML VIAL (J1940) IV ONE (09:05)
[2020-12-20] MEDS ORDERED: FURO20TA2 PO (09:11)
--- NOTE | 2020-12-20 09:43 | ECHO ---
ECHOCARDIOGRAM DATE OF PROCEDURE: 12/18/2020 Age: 55 Gender: Male Height: 188 cm Weight: 113 kg. REFERRING PHYSICIAN: Christen Hackett M.D. INDICATION: Dyspnea, unspecified. MEASUREMENTS: 2D Measurements: Aortic root 3.8 cm Left atrium 4.7 cm Left atrial volume index 29 Proximal ascending aorta 3.5 cm Doppler Measurements: No aortic stenosis No aortic regurgitation LVOT velocity 78.2 cm/sec Very mild mitral regurgitation No tricuspid regurgitation No pulmonic regurgitation MITRAL ANNULAR TISSUE DOPPLER: Not valid (off axis measurements) DESCRIPTION: Rhythm was sinus with frequent premature atrial contractions (PACs) and infrequent premature ventricular contractions (PVCs). This was a moderately technically difficult echocardiogram, which was performed with the patient sitting up. No pericardial effusion. CONCLUSIONS: 1. Left ventricle appeared normal in size and wall thickness by visual assessment. No regional left ventricular (LV) wall motion abnormalities. Left ventricle systolic function appeared to be near the lower limits of normal. Left ventricular ejection fraction (LVEF) 50-55% by visual assessment. Incomplete assessment for LV diastolic function. 2. Normal right ventricle size and systolic function. 3. Mild left atrial dilatation by left atrial volume index. 4. Suggestive of normal central venous pressure (CVP) (5-10 mmHg). 5. Moderately technically difficult echocardiogram. 6. Mild mitral annular calcification. Very mild mitral regurgitation. 7. Mild aortic valve sclerosis of A3-cuspid aortic valve. No aortic regurgitation. 8. Otherwise, unremarkable-appearing echocardiogram Doppler findings. COMMENTS:
--- NOTE | 2020-12-20 09:51 | DS.PDOC ---
Discharge Summary General Date of Admission Dec 18, 2020 at 13:15 Date of Discharge 12/20/2020 Discharge Summary PRIMARY CARE PHYSICIAN: [facility], PCP just graduated residency, will be assigned a new one shortly ATTENDING AT TIME OF DISCHARGE: Dr. Zeke Guerrero, DO DISCHARGE DIAGNOS(E)S: Acute decompensation of congestive heart failure, unknown type Dyspnea Suspect Undiagnosed COPD Leukocytosis Hypertensive urgency Metabolic disorder Prediabetes Obstructive sleep apnea Depression/anxiety Alcohol use disorder HPI & HOSPITAL COURSE: 55-year-old male presented to the emergency department with shortness of breath, orthopnea, and bilateral ankle swelling. He was found to be acute decompensation of congestive heart failure. His heart failure is also likely exacerbated by binge drinking habits, his last binge was approximately 2 weeks ago. Additionally, upon arrival to the emergency department he was found to be in hypertensive emergency. Patient diuresed well during his inpatient stay, and had a net negative of over 4 L over the past few days. In addition to this his blood pressures were controlled with his home dose of medications which were reinitiated, there is some question of noncompliance. Given his presentation, he will be sent home with furosemide 20 mg daily which will be sent to his pharmacy, in addition to his usual home dose of lisinopril and carvedilol. He does have a low magnesium, likely secondary to aggressive diuresis. Magnesium replacement will be given to him prior to discharge today, but this should not prevent him from going home today either. Otherwise, his breathing has significantly improved, his orthopnea has now resolved, and the bilateral lower extremity edema is almost fully resolved. He does appear to be safe and ready for discharge at this time. PHYSICAL EXAMINATION ON DISCHARGE: GENERAL: Awake, alert, oriented x3. He is a good historian. CARDIOVASCULAR EXAMINATION: Regular rate and rhythm, with no rubs, gallops, or murmur. RESPIRATORY EXAMINATION: Clear to auscultation bilaterally with no wheezes, rales, or rhonchi. ABDOMINAL EXAMINATION: Soft, nontender, nondistended. Bowel sounds present. EXTREMITIES: No clubbing or edema noted. 2+ pulses in the radial bilaterally. Perhaps some trace edema in the bilateral lower extremities, no higher than the ankles. DISPOSITION: Home DISCHARGE INSTRUCTIONS: Follow-up with primary care provider in 7-10 days. Recommend low-sodium diet and continue fluid restriction to 2000 mL/day. Activity as tolerated.. If symptoms return, or if you experience worsening of your symptoms, please call your doctor or return to the emergency department. ITEMS THAT NEED OUTPATIENT FOLLOWUP: Echocardiogram was performed while inpatient, however dictation is still pending. Recommend following up on this as an outpatient with his PCP. Vital Signs/I&Os Vital Signs Date Time Temp Pulse Resp B/P (MAP) Pulse Ox O2 Delivery O2 Flow Rate FiO2 12/20/20 09:02 85 158/89 12/20/20 08:00 96.6 23 95 Nasal Cannula 2.0 I&O- Last 24 Hours up to 6 AM 12/20/20 06:00 Intake Total 1378 ml Output Total 4600 ml Balance -3222 ml Laboratory Data Labs 24H Laboratory Tests 2 12/19/20 16:48: Free Thyroxine 0.92 12/20/20 05:23: Nucleated Red Blood Cells % (auto) 0.0, Anion Gap 7L, Glomerular Filtration Rate > 60.0, Calcium Level 8.5, Phosphorus Level 3.6, Magnesium Level 1.2L, Albumin 3.1L CBC/BMP Laboratory Tests 12/20/20 05:23 Microbiology Microbiology 12/18/20 Respiratory Virus Panel (PCR) (MILLICENT) - Final, Complete Discharge Medications Scheduled Atorvastatin Calcium (Atorvastatin Calcium) 80 Mg Tablet, 80 MG PO DAILY, (Reported) Carvedilol (Carvedilol) 12.5 Mg Tab, 12.5 MG PO BID, (Reported) Fluticasone Propion/Salmeterol (Fluticasone-Salmeterol 232-14) 1 Each Aer.pow.ba, 1 PUFF INH TID, (Reported) Furosemide (Furosemide) 20 Mg Tablet, 1 TAB PO DAILY Glipizide (Glipizide) 5 Mg Tablet, 5 MG PO DAILY, (Reported) Lisinopril (Lisinopril) 40 Mg Tablet, 40 MG PO DAILY, (Reported) Metformin HCl (Metformin HCl ER) 500 Mg Tab.er.24h, 500 MG PO DAILY, (Reported) Omeprazole (Omeprazole) 20 Mg Cap, 20 MG PO DAILY, (Reported) allopurinoL (allopurinoL) 300 Mg Tablet, 300 MG PO DAILY, (Reported) Scheduled PRN Albuterol Sulfate (Ventolin Hfa) 18 Gm Hfa.aer.ad, 2 PUFF INH Q4H PRN for SOB/WHEEZING, (Reported) Allergies Coded Allergies: No Known Allergies (Verified , 09/15/17) ZEKE GUERRERO DO Dec 20, 2020 09:51
== END 2020-12-20 10:53 | disposition home or self-care (01) | DRG 194 ==
LOC: M ED 09:50 → M ED INP 13:15 → ENRESERV 14:10 → M PCU 15:25
PROVIDERS: ADMIT Student in an Organized Health Care Education/Training Program; ATTEND Neuromusculoskeletal Medicine & OMM
DX: I11.0 Hypertensive heart disease with heart failure (principal); J44.1 Chronic obstructive pulmonary disease with (acute) exacerbation; E83.42 Hypomagnesemia; F10.10 Alcohol abuse, uncomplicated; I16.0 Hypertensive urgency; F41.9 Anxiety disorder, unspecified; F32.9 Major depressive disorder, single episode, unspecified; D72.829 Elevated white blood cell count, unspecified; G47.33 Obstructive sleep apnea (adult) (pediatric); Z79.899 Other long term (current) drug therapy; R73.03 Prediabetes; I50.9 Heart failure, unspecified

== ENCOUNTER → 2020-12-23 | Outpatient (REF) | payer OTHER ==
[~2020-12-23] MED LIST changes: +ALLO300T2 PO; +ATOR80TA59 PO; +FLUT1INH3 INH; +FURO20TA2 PO; +GLIP5TAB8 PO
== END ==
LOC: M SFHCPLAZ 16:36
PROVIDERS: ATTEND Family Medicine
DX: Z53.9 Procedure and treatment not carried out, unspecified reason (principal)

== ENCOUNTER → 2020-12-24 | Outpatient (CLI) | payer OTHER ==
[2020-12-24 15:52] LABS: BLOOD UREA NITROGEN 13 MG/DL (7-18); CALCIUM LEVEL 9.6 MG/DL (8.5-10.1); CARBON DIOXIDE LEVEL 36 MEQ/L (21-32); CHLORIDE LEVEL 102 MEQ/L (98-107); CREATININE FOR GFR 0.72 MG/DL (0.70-1.30); GLOMERULAR FILTRATION RATE > 60.0 (>56); GLUCOSE, FASTING 99 MG/DL (70-100); POTASSIUM SERUM 4.1 MEQ/L (3.5-5.1); SODIUM LEVEL 142 MEQ/L (136-145)
== END ==
LOC: M PLALAB 12:05
PROVIDERS: ATTEND Student in an Organized Health Care Education/Training Program
DX: I10 Essential (primary) hypertension (principal)

== ENCOUNTER 2021-05-31 09:35 | Emergency (ER) | payer OTHER ==
[~2021-05-31] VITALS: Ht 188 cm; Wt 113.6 kg
[~2021-05-31 09:35] MED LIST changes: -QUET50TA3 PO; +QUET50TA4 PO
--- NOTE | 2021-05-31 10:37 | REP ---
INDICATION: trauma COMPARISON: None. TECHNIQUE: AP, lateral, bilateral oblique and sunrise views. FINDINGS: Lateral view demonstrates large suprapatellar effusion. Osteopenia and advanced tricompartmental osteoarthritic degenerative changes are appreciated without obvious acute fracture or dislocation. IMPRESSION: 1. Large suprapatellar effusion concerning for occult injury. 2. No obvious acute fracture or dislocation identified. <Electronically signed by Lam Goode > 05/31/21 [id number]
--- NOTE | 2021-05-31 12:54 | REP ---
INDICATION: trauma ? occult injury x-ray. COMPARISON: None. TECHNIQUE: Axial noncontrast images of the right knee with coronal and sagittal reformations. FINDINGS: There is a large suprapatellar effusion along with moderate joint effusion and surrounding subcutaneous fat stranding which may reflect a soft tissue injury and requires correlation. The osseous structures demonstrate advanced tricompartmental osteoarthritic changes including osteophytosis, chondrocalcinosis, periarticular sclerosis and joint space narrowing. There is no evidence for acute fracture or dislocation. IMPRESSION: 1. Effusion and subcutaneous fat stranding may be related to underlying soft tissue injury. 2. Advanced tricompartmental osteoarthritic changes without acute fracture or dislocation. <Electronically signed by Lam Goode > 05/31/21 [id number]
[2021-05-31] MEDS ORDERED: LIDOCAINE 1% MDV 20ML VIAL SC ONE (14:00)
[2021-05-31] MEDS ORDERED: LIDOCAINE 1% MDV 20ML VIAL As Ordered ONE (14:02)
--- NOTE | 2021-05-31 14:43 | CR.PDOC ---
General Date of Consultation: May 31, 2021 Attending Physician: KELBY MENDES MD Consultation Date of Consultation: May 31, 2021 Attending Physician: KELBY MENDES MD Consultation REASON FOR CONSULTATION/CHIEF COMPLAINT: [Asked to see patient right swollen knee. History of blunt trauma to the right knee 3 days ago. HISTORY OF PRESENT ILLNESS: [He states he fell off and hit the anterior surface of his knee. He has had increased swelling and pain in his knee. Denies any symptoms of infection in terms of erythema, fever, chills, night sweats. He states his difficulty with walking on that knee. Pain is worse with flexion and weightbearing. He can still weight-bear on the knee but the pain is 8 on 10. He prefers to sit with the knee flexed at about 70 degrees. Is got good power of extension. He does state he had a history of some arthritis in that knee. ALLERGIES: Please see below. HOME MEDICATIONS: Please see below. PAST MEDICAL HISTORY: 1. [Hypertension]. 2. [Diabetes COPD]. 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 HEENT: [No head neck pain, extra ocular movements intact]. CARDIOVASCULAR: [No chest pain, no palpitations, no shortness of breath]. RESPIRATORY: [COPD]. GENITOURINARY: [No urinary difficulties]. MUSCULOSKELETAL: [Right knee pain, joint effusion, difficulty weightbearing. 8 on 10 pain. Denies any other injuries]. GASTROINTESTINAL: [No abdominal discomfort]. SKIN: [Bruise over the right proximal tibia with typical typical. No signs of infection. Mild abrasion]. NEUROLOGICAL: [Alert and oriented]. PSYCHIATRIC: [Cooperative, states he is very anxious to be in the hospital]. ENDOCRINE: [Diabetes]. HEMATOLOGIC/LYMPHATIC: [No blood disorders]. ALLERGIC/IMMUNOLOGIC: [No known drug allergies]. PHYSICAL EXAMINATION: VITAL SIGNS: Please see below. GENERAL APPEARANCE: [Patient sitting on the stretcher knee at about 70 degrees, obvious right knee joint effusion. Small abrasion over the tibial tubercle. Cooperative. Anxious.]. HEENT: [Extra ocular movements intact, normal hearing loss]. RESPIRATORY: [Breathing comfortably on room air]. CARDIOVASCULAR: [No chest pain, vital signs stable]. ABDOMEN: [Soft nontender]. EXTREMITIES: [Patient antalgic gait significant right knee pain Knee held about 30 to 70 degrees, obvious large joint effusion with fullness in the suprapatellar area. Small abrasion over the tibial tubercle no signs of infection. Patient able to straight leg raise. Maintain extension at about 30 degrees, able to passively fully extend the knee Able to flex knee up to 100 degrees. There is some pain throughout the range of motion Sensory intact to light touch Good pulses distally Denies any hip pain with range of motion, denies any ankle pain.]. NEUROLOGICAL: [Sensory intact to light touch, grade 5 power throughout right lower extremity.]. PSYCHIATRIC: [Cooperative]. Verbal consent for right knee aspiration. Explained the risk and benefits of the aspiration. My impression is he has a hematoma from trauma in the right knee. Trauma occurred 3 days ago. Hopefully remove any hematoma could give him some symptomatic relief. Risk of further bleeding, risk of infection but will use sterile technique. Aspiration was sent off for testing. Patient does not want to stay for final results of the aspiration. He would like to proceed for hopefully therapeutic relief of his pain. Patient gave verbal consent for right knee aspiration Sterile technique Cleaned with chlorhexidine Superior lateral approach into the suprapatellar pouch Local anesthetic skin and subcutaneous tissues with 3 cc of Xylocaine Aspiration using 18-gauge needle into the suprapatellar pouch aspirated 70 cc of hematoma, red fluid . Patient had some relief of his pain and decreased swelling suprapatellar pouch Patient tolerated procedure very well. CT right knee : 1. Effusion and subcutaneous fat stranding may be related to underlying soft tissue injury. 2. Advanced tricompartmental osteoarthritic changes without acute fracture or dislocation. Assessment. Right knee posttraumatic hemarthrosis right knee. No gross fracture seen on x-rays or CT. Patient does have degenerative arthritis. May have superficial infection or fracture of one of the osteophytes. Patient tolerated aspiration of the hemarthrosis. He got some relief of his pain. Will send out aspirate for culture, Gram stain, cell. No impression that his knee is infected. I have asked him to follow-up with orthopedics this coming week. Advised if he develops any symptoms of infection to return to the ER. Plan: Knee immobilizer while walking. But may remove immobilizer at rest Follow-up [facility] orthopedics next week. Vital Signs/I&O Vital Signs Date Time Temp Pulse Resp B/P (MAP) Pulse Ox O2 Delivery O2 Flow Rate FiO2 05/31/21 13:49 98.3 88 20 147/86 (106) 94 Room Air Allergies Coded Allergies: No Known Allergies (Verified , 09/15/17) Home Medications Scheduled Atorvastatin Calcium (Atorvastatin Calcium) 80 Mg Tablet, 80 MG PO DAILY, (Reported) Carvedilol (Carvedilol) 12.5 Mg Tab, 12.5 MG PO BID, (Reported) Fluticasone Propion/Salmeterol (Fluticasone-Salmeterol 232-14) 1 Each Aer.pow.ba, 1 PUFF INH TID, (Reported) Furosemide (Furosemide) 20 Mg Tablet, 1 TAB PO DAILY for 30 Days, #30 Glipizide (Glipizide) 5 Mg Tablet, 5 MG PO DAILY, (Reported) Lisinopril (Lisinopril) 40 Mg Tablet, 40 MG PO DAILY, (Reported) Metformin HCl (Metformin HCl ER) 500 Mg Tab.er.24h, 500 MG PO DAILY, (Reported) Omeprazole (Omeprazole) 20 Mg Cap, 20 MG PO DAILY, (Reported) allopurinoL (allopurinoL) 300 Mg Tablet, 300 MG PO DAILY, (Reported) Scheduled PRN Albuterol Sulfate (Ventolin Hfa) 18 Gm Hfa.aer.ad, 2 PUFF INH Q4H PRN for SOB/WHEEZING, (Reported) KELBY MENDES MD May 31, 2021 14:43
[2021-05-31 14:45] VITALS: BP 176/91
[2021-05-31 16:20] LABS: SOURCE, BODY FLUID RT KNEE; SYNOVIAL FLUID COLOR RED (COLORLESS)
[2021-05-31 16:21] LABS: CRYSTALS, BODY FLUID NONE SEEN (NONE SEEN); SOURCE, BODY FLUID CRYSTALS RT KNEE
[2021-05-31 16:38] LABS: SOURCE, BODY FLUID GLUCOSE RT KNEE; SOURCE, BODY FLUID URIC ACID RT KNEE; URIC ACID, BODY FLUID 4.8 MG/DL (NOT ESTABLISHED)
[2021-06-01 06:38] LABS: BODY FLUID RHEUMATOID SCREEN NEGATIVE (NEGATIVE)
[2021-06-01 06:39] LABS: MUCIN CLOT TEST 4+ (4+)
== END 2021-05-31 14:50 | disposition home or self-care (01) ==
LOC: EDBD 09:35 → M ED 09:35
DX: M17.11 Unilateral primary osteoarthritis, right knee (principal); M25.461 Effusion, right knee; M25.561 Pain in right knee; W01.0XXA Fall on same level from slipping, tripping and stumbling without subsequent striking against object, initial encounter; Y92.480 Sidewalk as the place of occurrence of the external cause; Y93.9 Activity, unspecified; Y99.9 Unspecified external cause status; I10 Essential (primary) hypertension; E11.9 Type 2 diabetes mellitus without complications; J44.9 Chronic obstructive pulmonary disease, unspecified; E78.5 Hyperlipidemia, unspecified; F17.200 Nicotine dependence, unspecified, uncomplicated; Z79.899 Other long term (current) drug therapy

== ENCOUNTER → 2021-06-06 | Outpatient (CLI) | payer OTHER ==
[~2021-06-06] MED LIST changes: -LISI20TA20 PO; +LISI20TA37 PO
== END ==
LOC: M SOG 10:39
PROVIDERS: ATTEND Orthopaedic Surgery
DX: M25.061 Hemarthrosis, right knee (principal)

== ENCOUNTER → 2021-06-06 | Outpatient (REF) | payer OTHER ==
[2021-06-06 13:16] LABS: SOURCE, BODY FLUID RT KNEE; SYNOVIAL FLUID COLOR RED (COLORLESS)
[2021-06-06 19:15] LABS: CRYSTALS, BODY FLUID NONE SEEN (NONE SEEN); SOURCE, BODY FLUID CRYSTALS RT KNEE
== END ==
LOC: M LAB REF 12:40
PROVIDERS: ATTEND Orthopaedic Surgery
DX: M25.061 Hemarthrosis, right knee (principal)

== ENCOUNTER → 2021-06-26 | Outpatient (CLI) | payer OTHER ==
[2021-06-26 15:30] LABS: BASO % 0.4 % (0.0-1.0); EOS # 0.1 10^3/uL (0.0-0.5); EOS % 1.2 % (0.0-3.0); HEMATOCRIT 47.6 % (42.0-52.0); HEMOGLOBIN 15.4 g/dl (13.5-17.5); LYMPH # 3.3 10^3/uL (1.5-5.0); LYMPH % 34.8 % (24.0-44.0); MEAN CORPUSCULAR HEMOGLOBIN 31.2 pg (27.0-33.0); MEAN CORPUSCULAR HGB CONC 32.4 g/dl (32.0-36.5); MEAN CORPUSCULAR VOLUME 96.6 fl (80.0-96.0); MONO # 0.9 10^3/uL (0.0-0.8); MONO % 9.4 % (2.0-8.0); NEUTROPHILS % 53.8 % (36.0-66.0); PLATELET COUNT, AUTOMATED 199 10^3/uL (150-450); RED BLOOD COUNT 4.93 10^6/uL (4.30-6.10); WHITE BLOOD COUNT 9.4 10^3/uL (4.0-10.0)
[2021-06-26 15:59] LABS: ALT/SGPT 43 U/L (12-78); BILIRUBIN,DIRECT 0.1 MG/DL (0.0-0.2); BILIRUBIN,TOTAL 0.3 MG/DL (0.2-1.0); BLOOD UREA NITROGEN 13 MG/DL (7-18); CALCIUM LEVEL 9.6 MG/DL (8.5-10.1); CARBON DIOXIDE LEVEL 28 MEQ/L (21-32); CHLORIDE LEVEL 104 MEQ/L (98-107); CREATININE FOR GFR 0.74 MG/DL (0.70-1.30); GLOMERULAR FILTRATION RATE > 60.0 (>56); GLUCOSE, FASTING 102 MG/DL (70-100); PHOSPHORUS LEVEL 4.1 MG/DL (2.5-4.9); POTASSIUM SERUM 4.2 MEQ/L (3.5-5.1); SODIUM LEVEL 141 MEQ/L (136-145); TOTAL PROTEIN 7.3 GM/DL (6.4-8.2)
== END ==
LOC: M PLALAB 12:18
PROVIDERS: ATTEND Podiatrist Foot & Ankle Surgery
DX: B35.1 Tinea unguium (principal)

== ENCOUNTER → 2021-06-26 | Outpatient (CLI) | payer OTHER ==
[2021-06-26 16:01] LABS: ALT/SGPT 44 U/L (12-78); BILIRUBIN,TOTAL 0.4 MG/DL (0.2-1.0); BLOOD UREA NITROGEN 13 MG/DL (7-18); CALCIUM LEVEL 9.6 MG/DL (8.5-10.1); CARBON DIOXIDE LEVEL 29 MEQ/L (21-32); CHLORIDE LEVEL 103 MEQ/L (98-107); CREATININE FOR GFR 0.75 MG/DL (0.70-1.30); GLOMERULAR FILTRATION RATE > 60.0 (>56); GLUCOSE, FASTING 104 MG/DL (70-100); POTASSIUM SERUM 4.3 MEQ/L (3.5-5.1); SODIUM LEVEL 140 MEQ/L (136-145); TOTAL PROTEIN 7.5 GM/DL (6.4-8.2)
[2021-06-26 18:30] LABS: HEMOGLOBIN A1c 5.9 %
== END ==
LOC: M PLALAB 12:24
PROVIDERS: ATTEND Student in an Organized Health Care Education/Training Program
DX: E11.9 Type 2 diabetes mellitus without complications (principal)

== ENCOUNTER 2021-10-30 10:48 | Emergency (ER) | payer OTHER ==
[~2021-10-30] VITALS: Ht 188 cm; Wt 111.7 kg
[~2021-10-30 10:48] MED LIST changes: +ACET650T15 PO; +TERB250T90 PO; +THERTAB19 PO
[2021-10-30] MEDS ORDERED: ONDANSETRON 4MG/2ML VIAL IV ONE (10:55)
[2021-10-30] MEDS ORDERED: BOOSTRIX/ADACEL VACCINE (DIPHTH/PERTUSS/ACELL/TETANUS) 0.5ML SYR IM ONE (11:10)
[2021-10-30] MEDS ORDERED: ISOVUE-370 76% 100ML VIAL As Ordered ONE (11:15)
[2021-10-30 11:28] LABS: BASO % 0.5 % (0.0-1.0); EOS # 0.1 10^3/uL (0.0-0.5); EOS % 1.8 % (0.0-3.0); HEMATOCRIT 45.2 % (42.0-52.0); LYMPH # 3.2 10^3/uL (1.5-5.0); LYMPH % 39.9 % (24.0-44.0); MEAN CORPUSCULAR HEMOGLOBIN 31.8 pg (27.0-33.0); MEAN CORPUSCULAR HGB CONC 33.2 g/dl (32.0-36.5); MONO # 0.6 10^3/uL (0.0-0.8); MONO % 8.1 % (2.0-8.0); NEUTROPHILS # 3.9 10^3/uL (1.5-8.5); NEUTROPHILS % 49.4 % (36.0-66.0); PLATELET COUNT, AUTOMATED 230 10^3/uL (150-450); RED BLOOD COUNT 4.71 10^6/uL (4.30-6.10); WHITE BLOOD COUNT 7.9 10^3/uL (4.0-10.0)
[2021-10-30] MEDS: MORPHINE 4 MG/ML 1ML VIAL/SYRINGE IV PRN ×2 (11:36→12:08)
[2021-10-30 12:02] LABS: ALBUMIN 3.6 GM/DL (3.2-5.2); BILIRUBIN,DIRECT 0.1 MG/DL (0.0-0.2); BILIRUBIN,TOTAL 0.3 MG/DL (0.2-1.0); CK-MB VALUE MASS 2.7 NG/ML (<3.6); MB/CK RELATIVE INDEX 2.62 (< OR =4)
[2021-10-30] MEDS ORDERED: MORPHINE 4 MG/ML 1ML VIAL/SYRINGE IV ONE (12:40)
[2021-10-30 14:12] LABS: RSV AMPLIFICATION NEGATIVE (NEGATIVE)
[2021-10-30 14:44] VITALS: BP 114/33
== END 2021-10-30 14:50 | disposition short-term general hospital (02) ==
LOC: EDBD 10:48 → M ED 10:48
DX: S02.80XA Fracture of other specified skull and facial bones, unspecified side, initial encounter for closed fracture (principal); S82.842A Displaced bimalleolar fracture of left lower leg, initial encounter for closed fracture; S62.162A Displaced fracture of pisiform, left wrist, initial encounter for closed fracture; S80.211A Abrasion, right knee, initial encounter; S80.212A Abrasion, left knee, initial encounter; E11.9 Type 2 diabetes mellitus without complications; F10.10 Alcohol abuse, uncomplicated; J44.9 Chronic obstructive pulmonary disease, unspecified; F32.A Depression, unspecified; B18.2 Chronic viral hepatitis C; F17.200 Nicotine dependence, unspecified, uncomplicated; Y03.0XXA Assault by being hit or run over by motor vehicle, initial encounter; Y92.410 Unspecified street and highway as the place of occurrence of the external cause; Y93.55 Activity, bike riding; Y99.9 Unspecified external cause status
CPT/HCPCS: 70450; 70486; 71260; 72125; 73110; 73564; 73610; 74177; 80047; 80076; 82150; 82550; 82553; 83605; 83690; 85025; 87631; 90471; 90715; 93005; 93041; 94760; 96374; 96376; 99285; J2270; J2405; Q9967

== ENCOUNTER → 2021-12-04 | Outpatient (CLI) | payer OTHER | LOC: M PLAIMG 13:53 | PROVIDERS: ATTEND Student in an Organized Health Care Education/Training Program | DX: M25.561 Pain in right knee (principal); M25.551 Pain in right hip; M51.34 Other intervertebral disc degeneration, thoracic region; M51.36 Other intervertebral disc degeneration, lumbar region ==

== ENCOUNTER → 2022-02-11 | Outpatient (CLI) | payer OTHER ==
[~2022-02-11] MED LIST changes: +AMLO1TAB25 PO; +DULO1CAP6 PO
== END ==
LOC: M LABSMTC 10:14
PROVIDERS: ATTEND Anesthesiology
DX: Z01.818 Encounter for other preprocedural examination (principal); Z11.52 Encounter for screening for COVID-19

== ENCOUNTER 2022-02-16 06:51 | Day surgery (SDC) | payer OTHER ==
[~2022-02-16] VITALS: Ht 188 cm; Wt 110.2 kg
[~2022-02-16 06:51] MED LIST changes: +NS 1,000 ML IV ONE
[2022-02-16] MEDS ORDERED: LIDOCAINE 2% 100MG/5ML SDV (FOR ANES.) As Ordered ONE (07:20)
[2022-02-16] MEDS ORDERED: propofoL 200 MG/20 ML VIAL As Ordered ONE ×3 (07:20→08:05)
[2022-02-16 08:43] VITALS: BP 172/97
== END 2022-02-16 08:51 | disposition home or self-care (01) ==
LOC: M OPP 06:51
PROVIDERS: ATTEND Surgery
DX: Z12.11 Encounter for screening for malignant neoplasm of colon (principal); Z86.010 Personal history of colon polyps; D12.3 Benign neoplasm of transverse colon; D12.4 Benign neoplasm of descending colon; D12.5 Benign neoplasm of sigmoid colon; K64.9 Unspecified hemorrhoids; Z79.02 Long term (current) use of antithrombotics/antiplatelets; Z79.1 Long term (current) use of non-steroidal anti-inflammatories (NSAID); Z79.51 Long term (current) use of inhaled steroids; Z79.84 Long term (current) use of oral hypoglycemic drugs; Z79.899 Other long term (current) drug therapy; F17.200 Nicotine dependence, unspecified, uncomplicated; B19.20 Unspecified viral hepatitis C without hepatic coma; E11.9 Type 2 diabetes mellitus without complications; I10 Essential (primary) hypertension; J44.9 Chronic obstructive pulmonary disease, unspecified; F32.9 Major depressive disorder, single episode, unspecified; F41.9 Anxiety disorder, unspecified

== ENCOUNTER → 2022-05-21 | Outpatient (REF) | payer OTHER ==
[~2022-05-21] MED LIST changes: -NS 1,000 ML IV ONE
[2022-05-21 18:55] LABS: CRYSTALS, BODY FLUID NONE SEEN (NONE SEEN); SOURCE, BODY FLUID CRYSTALS LFT ELBOW
== END ==
LOC: M SFHCPLAZ 17:13
PROVIDERS: ATTEND Family Medicine
DX: M70.22 Olecranon bursitis, left elbow (principal)

== ENCOUNTER 2022-07-05 10:32 | Emergency (ER) | payer OTHER ==
[~2022-07-05] VITALS: Ht 188 cm; Wt 118.2 kg
[~2022-07-05 10:32] MED LIST changes: +FOLIC ACID 1MG TAB PO SCH; +MULTIVITAMINS/MINERALS THERAP 1 TAB PO SCH
[2022-07-05 11:33] LABS: HEMATOCRIT 49.8 % (42.0-52.0); HEMOGLOBIN 16.8 g/dl (13.5-17.5); MEAN CORPUSCULAR HEMOGLOBIN 30.8 pg (27.0-33.0); MEAN CORPUSCULAR HGB CONC 33.7 g/dl (32.0-36.5); MEAN CORPUSCULAR VOLUME 91.4 fl (80.0-96.0); PLATELET COUNT, AUTOMATED 220 10^3/uL (150-450); RED BLOOD COUNT 5.45 10^6/uL (4.30-6.10); WHITE BLOOD COUNT 8.3 10^3/uL (4.0-10.0)
[2022-07-05 11:45] LABS: ETHYL ALCOHOL (ETHANOL) 0.249 % (0.000-0.010)
[2022-07-05 11:47] LABS: SALICYLATE LEVEL < 3.0 MG/DL (<30)
[2022-07-05 11:48] LABS: ACETAMINOPHEN LEVEL < 2.0 UG/ML (10.0-20.0); ALBUMIN 3.9 G/DL (3.2-5.2); ALKALINE PHOSPHATASE 77 U/L (46-116); ALT/SGPT 51 U/L (7.0-40); AST/SGOT 52 U/L (<34); BILIRUBIN,DIRECT 0.3 MG/DL (<0.4); BILIRUBIN,TOTAL 0.7 MG/DL (0.3-1.2); BLOOD UREA NITROGEN 28 MG/DL (9-23); CALCIUM LEVEL 9.1 MG/DL (8.5-10.1); CARBON DIOXIDE LEVEL 28 MMOL/L (20-31); CHLORIDE LEVEL 100 MMOL/L (98-107); CREATININE FOR GFR 0.96 MG/DL (0.70-1.30); GLOMERULAR FILTRATION RATE > 60.0 (>56); GLUCOSE, FASTING 142 MG/DL (60-100); POTASSIUM SERUM 3.8 MMOL/L (3.5-5.1); SODIUM LEVEL 141 MMOL/L (136-145); TOTAL PROTEIN 7.4 G/DL (5.7-8.2)
[2022-07-05 11:50] LABS: THYROID STIMULATING HORMONE 1.236 uIU/ML (0.55-4.78)
[2022-07-05 11:56] LABS: RSV AMPLIFICATION NEGATIVE (NEGATIVE)
[2022-07-05] MEDS ORDERED: NICOTINE 21MG/24HR 1 EA TRANSDERMAL TD ONE (13:35)
[2022-07-05 16:01] LABS: AMPHETAMINES LEVEL URINE NEGATIVE (NEGATIVE); BARBITURATES URINE NEGATIVE (NEGATIVE); BENZODIAZEPINES URINE NEGATIVE (NEGATIVE); COCAINE METABOLITE URINE NEGATIVE (NEGATIVE); METHADONE URINE NEGATIVE (NEGATIVE); OPIATES URINE NEGATIVE (NEGATIVE)
[2022-07-05 16:02] LABS: CANNABINOIDS URINE NEGATIVE (NEGATIVE); PHENCYCLIDINE URINE NEGATIVE (NEGATIVE)
[2022-07-05] MEDS ORDERED: OXAZEPAM 15MG CAP PO ONE (17:35)
[2022-07-05] MEDS ORDERED: ONDANSETRON 4MG ORAL DISINTEGRATING TAB PO ONE (17:35)
[2022-07-05] MEDS ORDERED: LORazepam 2 MG TAB PO PRN (17:35)
[2022-07-05] MEDS ORDERED: THIAMINE 100 MG TAB PO SCH (18:00)
[2022-07-05 18:51] VITALS: BP 158/94
== END 2022-07-05 19:17 | disposition home or self-care (01) ==
LOC: EDSEX 10:32 → EDBD 10:32 → M ED 10:32
DX: F10.120 Alcohol abuse with intoxication, uncomplicated (principal); R45.851 Suicidal ideations; F32.A Depression, unspecified; E11.9 Type 2 diabetes mellitus without complications; G47.33 Obstructive sleep apnea (adult) (pediatric); J44.9 Chronic obstructive pulmonary disease, unspecified; B18.2 Chronic viral hepatitis C; F17.200 Nicotine dependence, unspecified, uncomplicated; Z79.82 Long term (current) use of aspirin; Z79.51 Long term (current) use of inhaled steroids; Z79.811 Long term (current) use of aromatase inhibitors; Z79.4 Long term (current) use of insulin; Z79.899 Other long term (current) drug therapy

== ENCOUNTER 2022-11-19 21:45 | Emergency (ER) | payer OTHER ==
[~2022-11-19] VITALS: Ht 188 cm; Wt 94.0 kg
[2022-11-19 22:25] LABS: HEMOGLOBIN 16.8 g/dl (13.5-17.5); MEAN CORPUSCULAR HGB CONC 32.9 g/dl (32.0-36.5); MEAN CORPUSCULAR VOLUME 94.1 fl (80.0-96.0); PLATELET COUNT, AUTOMATED 271 10^3/uL (150-450); RED BLOOD COUNT 5.42 10^6/uL (4.30-6.10); WHITE BLOOD COUNT 9.7 10^3/uL (4.0-10.0)
[2022-11-19 22:55] LABS: ETHYL ALCOHOL (ETHANOL) 0.256 % (0.000-0.010)
[2022-11-19 22:56] LABS: ACETAMINOPHEN LEVEL < 2.0 UG/ML (10.0-20.0); SALICYLATE LEVEL < 3.0 MG/DL (<30)
[2022-11-19 22:57] LABS: ALBUMIN 3.8 G/DL (3.2-5.2); ALKALINE PHOSPHATASE 69 U/L (46-116); ALT/SGPT 30 U/L (7.0-40); AST/SGOT 18 U/L (<34); BILIRUBIN,DIRECT 0.1 MG/DL (<0.4); BILIRUBIN,TOTAL 0.3 MG/DL (0.3-1.2); BLOOD UREA NITROGEN 19 MG/DL (9-23); CALCIUM LEVEL 8.7 MG/DL (8.5-10.1); CARBON DIOXIDE LEVEL 29 MMOL/L (20-31); CHLORIDE LEVEL 104 MMOL/L (98-107); CREATININE FOR GFR 0.87 MG/DL (0.70-1.30); GLOMERULAR FILTRATION RATE > 60.0 (>56); GLUCOSE, FASTING 138 MG/DL (60-100); POTASSIUM SERUM 4.1 MMOL/L (3.5-5.1); SODIUM LEVEL 143 MMOL/L (136-145)
[2022-11-19 22:58] LABS: THYROID STIMULATING HORMONE 0.715 uIU/ML (0.55-4.78)
[2022-11-20 02:51] LABS: AMPHETAMINES LEVEL URINE NEGATIVE (NEGATIVE)
[2022-11-20 02:52] LABS: BARBITURATES URINE NEGATIVE (NEGATIVE); BENZODIAZEPINES URINE NEGATIVE (NEGATIVE); CANNABINOIDS URINE NEGATIVE (NEGATIVE); COCAINE METABOLITE URINE NEGATIVE (NEGATIVE); METHADONE URINE NEGATIVE (NEGATIVE); OPIATES URINE NEGATIVE (NEGATIVE); PHENCYCLIDINE URINE NEGATIVE (NEGATIVE)
[2022-11-20] MEDS ORDERED: OXAZEPAM 15MG CAP PO ONE (06:45)
[2022-11-20 08:20] VITALS: BP 152/82; TEMP 97.2; O2SAT 93
== END 2022-11-20 08:24 | disposition home or self-care (01) ==
LOC: M ED 21:45
DX: F10.129 Alcohol abuse with intoxication, unspecified (principal); E11.9 Type 2 diabetes mellitus without complications; J44.9 Chronic obstructive pulmonary disease, unspecified; F32.A Depression, unspecified; M54.50 Low back pain, unspecified; Z79.52 Long term (current) use of systemic steroids; Z79.811 Long term (current) use of aromatase inhibitors; Z79.899 Other long term (current) drug therapy

== ENCOUNTER → 2022-11-19 | Outpatient (REF) | payer OTHER ==
[~2022-11-19] MED LIST changes: -FOLIC ACID 1MG TAB PO SCH; -MULTIVITAMINS/MINERALS THERAP 1 TAB PO SCH
== END ==
LOC: M SFHCPLAZ 16:09
PROVIDERS: ATTEND Student in an Organized Health Care Education/Training Program
DX: Z53.9 Procedure and treatment not carried out, unspecified reason (principal)

== ENCOUNTER → 2022-11-23 | Outpatient (CLI) | payer OTHER ==
[2022-11-23 12:21] LABS: ALBUMIN 3.6 G/DL (3.2-5.2); ALKALINE PHOSPHATASE 77 U/L (46-116); ALT/SGPT 26 U/L (7.0-40); AST/SGOT 14 U/L (<34); BILIRUBIN,TOTAL 0.5 MG/DL (0.3-1.2); BLOOD UREA NITROGEN 16 MG/DL (9-23); CALCIUM LEVEL 8.6 MG/DL (8.5-10.1); CARBON DIOXIDE LEVEL 29 MMOL/L (20-31); CHLORIDE LEVEL 103 MMOL/L (98-107); CHOLESTEROL LEVEL 91 MG/DL (<200); CHOLESTEROL RISK RATIO 2.95 (<5); CREATININE FOR GFR 0.81 MG/DL (0.70-1.30); CREATININE, URINE 119.6 MG/DL; GLOMERULAR FILTRATION RATE > 60.0 (>56); GLUCOSE, FASTING 117 MG/DL (60-100); HDL CHOLESTEROL 30.8 MG/DL (>40); MAGNESIUM LEVEL 1.3 MG/DL (1.8-2.4); NON-HDL-C 60.2 MG/DL; POTASSIUM SERUM 4.3 MMOL/L (3.5-5.1); SODIUM LEVEL 138 MMOL/L (136-145); TOTAL PROTEIN 6.6 G/DL (5.7-8.2); TRIGLYCERIDES LEVEL 362 MG/DL (<150)
[2022-11-23 12:23] LABS: FREE T4 1.04 NG/DL (0.89-1.76); THYROID STIMULATING HORMONE 1.197 uIU/ML (0.55-4.78)
[2022-11-23 12:26] LABS: VITAMIN B12 LEVEL 276 PG/ML (211-911)
[2022-11-23 12:28] LABS: FOLATE > 24.0 NG/ML (>5.4)
[2022-11-23 12:35] LABS: MAU/CREAT RATIO 2173.9 MCG/MG (0.0-30.0)
[2022-11-23 13:02] LABS: HEMOGLOBIN A1c 6.2 % (4.0-6.0)
== END ==
LOC: M PLALAB 09:18
PROVIDERS: ATTEND Student in an Organized Health Care Education/Training Program
DX: F10.21 Alcohol dependence, in remission (principal); Z13.29 Encounter for screening for other suspected endocrine disorder; E78.00 Pure hypercholesterolemia, unspecified; E11.9 Type 2 diabetes mellitus without complications

== ENCOUNTER → 2022-12-11 | Outpatient (REF) | payer OTHER ==
[2022-12-11 16:09] LABS: TOTAL PROTEIN,RANDOM URINE 96.8 MG/DL (0.0-14.0)
[2022-12-11 16:14] LABS: CREATININE, URINE 84.5 MG/DL
[2022-12-11 16:26] LABS: MAU/CREAT RATIO 772.7 MCG/MG (0.0-30.0)
== END ==
LOC: M SFHCPLAZ 15:10
PROVIDERS: ATTEND Student in an Organized Health Care Education/Training Program
DX: N04.9 Nephrotic syndrome with unspecified morphologic changes (principal)

== ENCOUNTER → 2023-01-14 | Outpatient (REF) | payer OTHER ==
[2023-01-14 19:30] LABS: COMPLEMENT C3 176.4 MG/DL (90.0-170.0); COMPLEMENT C4 31.3 MG/DL (12-36)
[2023-01-19 16:08] LABS: ANCA-ATYPICAL <1:20 titer (Neg:<1:20); ANTI DS-DNA AB Negative (Negative); CYTOPLASMIC NEUTROP AB ANCA-C <1:20 titer (Neg:<1:20); PERINUCLEAR AB ANCA-P <1:20 titer (Neg:<1:20)
== END ==
LOC: M LAB REF 16:50
PROVIDERS: ATTEND Internal Medicine Nephrology
DX: R80.9 Proteinuria, unspecified (principal)

== ENCOUNTER → 2023-03-26 | Outpatient (CLI) | payer OTHER ==
[~2023-03-26] MED LIST changes: +GLIP5TAB17 PO; -GLIP5TAB8 PO
[2023-03-26 14:00] LABS: BLOOD UREA NITROGEN 23 MG/DL (9-23); CALCIUM LEVEL 9.5 MG/DL (8.5-10.1); CARBON DIOXIDE LEVEL 33 MMOL/L (20-31); CHLORIDE LEVEL 97 MMOL/L (98-107); GLOMERULAR FILTRATION RATE > 60.0 (>56); GLUCOSE, FASTING 112 MG/DL (60-100); MAGNESIUM LEVEL 1.6 MG/DL (1.8-2.4); POTASSIUM SERUM 4.3 MMOL/L (3.5-5.1); SODIUM LEVEL 138 MMOL/L (136-145)
== END ==
LOC: M PLALAB 09:03
PROVIDERS: ATTEND Student in an Organized Health Care Education/Training Program
DX: N04.9 Nephrotic syndrome with unspecified morphologic changes (principal); E83.42 Hypomagnesemia

== ENCOUNTER → 2023-08-24 | Outpatient (REF) | payer OTHER | LOC: M SFHCPLAZ 16:05 | PROVIDERS: ATTEND Internal Medicine Hematology | DX: R10.9 Unspecified abdominal pain (principal) ==

== ENCOUNTER → 2023-09-13 | Outpatient (CLI) | payer OTHER | LOC: M RAD 09:36 | PROVIDERS: ATTEND Student in an Organized Health Care Education/Training Program | DX: I73.9 Peripheral vascular disease, unspecified (principal) ==

== ENCOUNTER 2023-10-04 12:03 | Emergency (ER) | payer OTHER ==
[~2023-10-04] VITALS: Ht 188 cm; Wt 127.3 kg
[2023-10-04 12:28] VITALS: BP 163/81; TEMP 97.2; O2SAT 92
== END 2023-10-04 15:15 | disposition left against medical advice (07) ==
LOC: M ED 12:03 → EDBD 12:03 → M ED 15:15
DX: Z53.21 Procedure and treatment not carried out due to patient leaving prior to being seen by health care provider (principal)

== ENCOUNTER → 2024-01-07 | Outpatient (REF) | payer OTHER | LOC: M SFHCPLAZ 12:55 | PROVIDERS: ATTEND Internal Medicine Hematology | DX: Z53.20 Procedure and treatment not carried out because of patient's decision for unspecified reasons (principal) ==

== ENCOUNTER → 2024-01-10 | Outpatient (CLI) | payer OTHER ==
[2024-01-10 13:35] LABS: ALBUMIN 3.7 G/DL (3.2-5.2); ALKALINE PHOSPHATASE 66 U/L (46-116); ALT/SGPT 31 U/L (7.0-40); AST/SGOT 18 U/L (<34); BILIRUBIN,TOTAL 0.3 MG/DL (0.3-1.2); BLOOD UREA NITROGEN 15 MG/DL (9-23); CALCIUM LEVEL 9.8 MG/DL (8.5-10.1); CARBON DIOXIDE LEVEL 36 MMOL/L (20-31); CHLORIDE LEVEL 100 MMOL/L (98-107); CREATININE FOR GFR 0.88 MG/DL (0.70-1.30); GLOMERULAR FILTRATION RATE > 60.0 (>56); GLUCOSE, FASTING 95 MG/DL (60-100); POTASSIUM SERUM 4.3 MMOL/L (3.5-5.1); SODIUM LEVEL 138 MMOL/L (136-145); TOTAL PROTEIN 7.1 G/DL (5.7-8.2)
== END ==
LOC: M PLALAB 09:55
PROVIDERS: ATTEND Student in an Organized Health Care Education/Training Program
DX: M79.89 Other specified soft tissue disorders (principal); F10.21 Alcohol dependence, in remission; R07.9 Chest pain, unspecified; I10 Essential (primary) hypertension

== ENCOUNTER → 2024-02-14 | Outpatient (CLI) | payer OTHER | LOC: M PLAIMG 10:00 | PROVIDERS: ATTEND Student in an Organized Health Care Education/Training Program | DX: M25.551 Pain in right hip (principal); M25.561 Pain in right knee; M54.40 Lumbago with sciatica, unspecified side; M16.11 Unilateral primary osteoarthritis, right hip; M17.0 Bilateral primary osteoarthritis of knee; M47.814 Spondylosis without myelopathy or radiculopathy, thoracic region ==

== ENCOUNTER → 2024-02-18 | Outpatient (CLI) | payer OTHER | LOC: M PLAIMG 10:22 | PROVIDERS: ATTEND Student in an Organized Health Care Education/Training Program | DX: R07.9 Chest pain, unspecified (principal) ==

== ENCOUNTER 2024-03-01 11:31 | Emergency (ER) | payer OTHER ==
[~2024-03-01] VITALS: Ht 188 cm; Wt 127.3 kg
[2024-03-01 12:43] VITALS: TEMP 96.5
[2024-03-01 13:10] VITALS: BP 113/82; O2SAT 91
== END 2024-03-01 13:00 | disposition left against medical advice (07) ==
LOC: EDBD 11:31 → M ED 11:31
DX: S01.01XA Laceration without foreign body of scalp, initial encounter (principal); F10.10 Alcohol abuse, uncomplicated; W19.XXXA Unspecified fall, initial encounter; E11.9 Type 2 diabetes mellitus without complications; I10 Essential (primary) hypertension; J44.9 Chronic obstructive pulmonary disease, unspecified; F17.200 Nicotine dependence, unspecified, uncomplicated; G47.30 Sleep apnea, unspecified; G89.4 Chronic pain syndrome; Z79.52 Long term (current) use of systemic steroids; Z79.4 Long term (current) use of insulin; Z79.811 Long term (current) use of aromatase inhibitors; Z79.899 Other long term (current) drug therapy; Y92.9 Unspecified place or not applicable; Y93.89 Activity, other specified; Y99.9 Unspecified external cause status; Z53.9 Procedure and treatment not carried out, unspecified reason

== ENCOUNTER → 2024-03-08 | Outpatient (CLI) | payer OTHER | LOC: M PLAIMG 12:26 | PROVIDERS: ATTEND Student in an Organized Health Care Education/Training Program | DX: J44.9 Chronic obstructive pulmonary disease, unspecified (principal) ==

== ENCOUNTER → 2024-03-10 | Outpatient (CLI) | payer OTHER ==
[2024-03-10 12:52] LABS: BASO # 0.1 10^3/uL (0.0-0.2); BASO % 0.6 % (0.0-1.0); EOS # 0.1 10^3/uL (0.0-0.5); EOS % 0.7 % (0.0-3.0); HEMOGLOBIN 15.9 g/dl (13.5-17.5); LYMPH # 2.6 10^3/uL (1.5-5.0); LYMPH % 23.7 % (24.0-44.0); MEAN CORPUSCULAR HEMOGLOBIN 30.7 pg (27.0-33.0); MEAN CORPUSCULAR HGB CONC 32.4 g/dl (32.0-36.5); MEAN CORPUSCULAR VOLUME 94.6 fl (80.0-96.0); MONO # 0.9 10^3/uL (0.0-0.8); MONO % 8.1 % (2.0-8.0); NEUTROPHILS # 7.3 10^3/uL (1.5-8.5); NEUTROPHILS % 66.2 % (36.0-66.0); PLATELET COUNT, AUTOMATED 202 10^3/uL (150-450); RED BLOOD COUNT 5.18 10^6/uL (4.30-6.10)
[2024-03-10 13:10] LABS: INR 0.99; PROTHROMBIN TIME 12.8 SECONDS (12.5-14.5)
[2024-03-10 13:13] LABS: HEMOGLOBIN A1c 6.8 % (4.0-6.0)
[2024-03-10 13:18] LABS: ALBUMIN 3.8 G/DL (3.2-5.2); ALKALINE PHOSPHATASE 72 U/L (46-116); ALT/SGPT 41 U/L (7.0-40); AST/SGOT 22 U/L (<34); BILIRUBIN,TOTAL 0.4 MG/DL (0.3-1.2); BLOOD UREA NITROGEN 21 MG/DL (9-23); CALCIUM LEVEL 9.8 MG/DL (8.5-10.1); CARBON DIOXIDE LEVEL 30 MMOL/L (20-31); CHLORIDE LEVEL 100 MMOL/L (98-107); GLOMERULAR FILTRATION RATE > 60.0 (>56); GLUCOSE, FASTING 114 MG/DL (60-100); POTASSIUM SERUM 4.4 MMOL/L (3.5-5.1); SODIUM LEVEL 137 MMOL/L (136-145); TOTAL PROTEIN 7.4 G/DL (5.7-8.2)
[2024-03-10 13:20] LABS: TOTAL 25(OH) VITAMIN D 29.5 NG/ML (20.0-100.0)
== END ==
LOC: M PLALAB 09:52
PROVIDERS: ATTEND Orthopaedic Surgery
DX: M17.11 Unilateral primary osteoarthritis, right knee (principal)

== ENCOUNTER → 2024-03-10 | Outpatient (CLI) | payer OTHER ==
[2024-03-10 13:18] LABS: BLOOD UREA NITROGEN 21 MG/DL (9-23); CALCIUM LEVEL 9.8 MG/DL (8.5-10.1); CARBON DIOXIDE LEVEL 30 MMOL/L (20-31); CHLORIDE LEVEL 102 MMOL/L (98-107); CREATININE FOR GFR 0.85 MG/DL (0.70-1.30); GLOMERULAR FILTRATION RATE > 60.0 (>56); GLUCOSE, FASTING 113 MG/DL (60-100); MAGNESIUM LEVEL 1.6 MG/DL (1.8-2.4); POTASSIUM SERUM 4.4 MMOL/L (3.5-5.1); SODIUM LEVEL 135 MMOL/L (136-145)
== END ==
LOC: M PLALAB 09:54
PROVIDERS: ATTEND Student in an Organized Health Care Education/Training Program
DX: F51.01 Primary insomnia (principal)

== ENCOUNTER → 2024-04-10 | Outpatient (CLI) | payer OTHER ==
[~2024-04-10] MED LIST changes: +LOSA100T5 PO; +MAGN400T35 PO; +METO1TAB7 PO; +OMEP40CA5 PO; +SEMA0.257 SC; +SPIR-10 PO; +SPIR12.9 INH; +TIZA2TA PO
== END ==
LOC: M PLAIMG 08:03
PROVIDERS: ATTEND Pain Medicine Interventional Pain Medicine
DX: M54.16 Radiculopathy, lumbar region (principal)

== ENCOUNTER → 2024-04-11 | Outpatient (REF) | payer OTHER ==
[2024-04-11 14:37] LABS: HEMATOCRIT 48.7 % (42.0-52.0); HEMOGLOBIN 15.6 g/dl (13.5-17.5); MEAN CORPUSCULAR HEMOGLOBIN 30.8 pg (27.0-33.0); MEAN CORPUSCULAR VOLUME 96.1 fl (80.0-96.0); PLATELET COUNT, AUTOMATED 237 10^3/uL (150-450); RED BLOOD COUNT 5.07 10^6/uL (4.30-6.10); WHITE BLOOD COUNT 9.5 10^3/uL (4.0-10.0)
[2024-04-11 15:01] LABS: BLOOD UREA NITROGEN 21 MG/DL (9-23); CALCIUM LEVEL 9.8 MG/DL (8.5-10.1); CARBON DIOXIDE LEVEL 30 MMOL/L (20-31); CHLORIDE LEVEL 103 MMOL/L (98-107); CREATININE FOR GFR 0.86 MG/DL (0.70-1.30); GLOMERULAR FILTRATION RATE > 60.0 (>56); GLUCOSE, FASTING 131 MG/DL (60-100); POTASSIUM SERUM 4.3 MMOL/L (3.5-5.1); SODIUM LEVEL 138 MMOL/L (136-145)
[2024-04-11 16:16] LABS: HEMOGLOBIN A1c 6.8 % (4.0-6.0)
[2024-04-13 12:42] LABS: PSA FREE 0.4 ng/mL; PSA TOTAL 0.9 ng/mL (< OR = 4.0)
== END ==
LOC: M SFHCPLAZ 10:00
PROVIDERS: ATTEND Family Medicine
DX: R07.9 Chest pain, unspecified (principal); J44.9 Chronic obstructive pulmonary disease, unspecified; E11.9 Type 2 diabetes mellitus without complications; R39.12 Poor urinary stream

== ENCOUNTER → 2024-05-05 | Outpatient (CLI) | payer OTHER ==
[~2024-05-05] MED LIST changes: +E-Z-GAS II EFFERVESCENT PACKET (SODIUM BICARB./CITRIC ACID/SIMETHICONE) As Ordered ONE; +E-Z-HD 98% w/w 340GM SUSP BTL As Ordered ONE; +E-Z-PAQUE 96% w/w SUSP 176GM BTL As Ordered ONE
== END ==
LOC: M RAD 09:05
PROVIDERS: ATTEND Student in an Organized Health Care Education/Training Program
DX: R13.10 Dysphagia, unspecified (principal); R93.3 Abnormal findings on diagnostic imaging of other parts of digestive tract

== ENCOUNTER → 2024-05-09 | Outpatient (CLI) | payer OTHER ==
[~2024-05-09] MED LIST changes: -E-Z-GAS II EFFERVESCENT PACKET (SODIUM BICARB./CITRIC ACID/SIMETHICONE) As Ordered ONE; -E-Z-HD 98% w/w 340GM SUSP BTL As Ordered ONE; -E-Z-PAQUE 96% w/w SUSP 176GM BTL As Ordered ONE; +GASTROGRAFIN SOLUTION 30ML As Ordered ONE; +ISOVUE-370 76% 100ML VIAL As Ordered ONE
== END ==
LOC: M RAD 12:03
PROVIDERS: ATTEND Student in an Organized Health Care Education/Training Program
DX: R13.10 Dysphagia, unspecified (principal); K31.89 Other diseases of stomach and duodenum
CPT/HCPCS: 71260; 74160; Q9963; Q9967

== ENCOUNTER → 2024-05-12 | Outpatient (CLI) | payer OTHER ==
[~2024-05-12] MED LIST changes: -GASTROGRAFIN SOLUTION 30ML As Ordered ONE; -ISOVUE-370 76% 100ML VIAL As Ordered ONE
== END ==
LOC: M PLARAD 07:46
PROVIDERS: ATTEND Pain Medicine Interventional Pain Medicine
DX: M47.814 Spondylosis without myelopathy or radiculopathy, thoracic region (principal); M51.34 Other intervertebral disc degeneration, thoracic region

== ENCOUNTER → 2024-08-11 | Outpatient (CLI) | payer OTHER ==
[~2024-08-11] VITALS: Ht 188 cm; Wt 118.0 kg
[~2024-08-11] MED LIST changes: -ADV500INH INH; +ADVA1AER10 INH; +PERCOCET PO; +ceFAZolin SODIUM 3 GM VIAL As Ordered ONE
[2024-08-11 12:31] VITALS: TEMP 97.8
[2024-08-11] MEDS: ceFAZolin SODIUM 2 GM in DEXTROSE 5% (D5W) ADV/MINI-BAG 50 ML IV ONE (13:25)
[2024-08-11] MEDS: NS (Normal Saline) 0.9% 1,000 ML IV SCH (13:25)
[2024-08-11] MEDS: MIDAZOLAM INJ 2MG/2ML VIAL IV PRN (13:29)
[2024-08-11] MEDS: fentaNYL 100 MCG/2 ML INJECTION IV PRN (13:30)
[2024-08-11] MEDS: LIDOCAINE 1% MDV 20ML VIAL SC ONE (13:31)
[2024-08-11 14:15] VITALS: BP 130/77; O2SAT 95
== END ==
LOC: M IRPRO 12:26
PROVIDERS: ATTEND Internal Medicine Medical Oncology
DX: C16.9 Malignant neoplasm of stomach, unspecified (principal)
CPT/HCPCS: 36561; C1894; J0690; J1642; J2250; J3010

== ENCOUNTER → 2024-08-25 | Outpatient (CLI) | payer OTHER ==
[~2024-08-25] MED LIST changes: +DULO30CA9 PO; +LIDO30CR18 TOP; +ONDA-284 PO; +ONDA-84 PO; +OXYC10TA12 PO; +PROC10TA5 PO; -ceFAZolin SODIUM 3 GM VIAL As Ordered ONE
== END ==
LOC: M RAD 13:17
PROVIDERS: ATTEND Internal Medicine Pulmonary Disease
DX: R91.8 Other nonspecific abnormal finding of lung field (principal)

== ENCOUNTER → 2024-09-14 | Outpatient (CLI) | payer OTHER ==
[~2024-09-14] VITALS: Ht 188 cm; Wt 114.2 kg
[~2024-09-14] MED LIST changes: +FEBU40TA4 PO; +MIRA3350 PO; +SENN-186 PO
[2024-09-14 13:21] VITALS: BP 145/87; O2SAT 95
== END ==
LOC: M PAL 13:04
PROVIDERS: ATTEND Physician Assistant
DX: Z51.5 Encounter for palliative care (principal); C16.0 Malignant neoplasm of cardia; R52 Pain, unspecified; F41.9 Anxiety disorder, unspecified; R11.0 Nausea; K59.00 Constipation, unspecified; Z66 Do not resuscitate; Z79.891 Long term (current) use of opiate analgesic; Z79.899 Other long term (current) drug therapy

== ENCOUNTER → 2024-10-18 | Outpatient (CLI) | payer OTHER ==
[~2024-10-18] VITALS: Ht 188 cm; Wt 108.9 kg
[2024-10-18 14:06] VITALS: BP 140/87; O2SAT 94
== END ==
LOC: M PAL 13:27
PROVIDERS: ATTEND Physician Assistant
DX: Z51.5 Encounter for palliative care (principal); C16.0 Malignant neoplasm of cardia; Z66 Do not resuscitate; Z79.891 Long term (current) use of opiate analgesic; Z79.899 Other long term (current) drug therapy

== ENCOUNTER → 2024-10-19 | Outpatient (CLI) | payer OTHER ==
[2024-10-19 13:17] LABS: INR 0.92; PARTIAL THROMBOPLASTIN TIME 25.6 SECONDS (24.8-34.2); PROTHROMBIN TIME 12.7 SECONDS (12.5-14.5)
[2024-10-19 13:18] LABS: PLATELET COUNT, AUTOMATED 157 10^3/uL (150-450)
== END ==
LOC: M PLALAB 11:09
PROVIDERS: ATTEND Internal Medicine Pulmonary Disease
DX: Z01.812 Encounter for preprocedural laboratory examination (principal)

== ENCOUNTER → 2024-12-20 | Outpatient (CLI) | payer OTHER ==
[~2024-12-20] VITALS: Ht 188 cm; Wt 104.6 kg
[~2024-12-20] MED LIST changes: +LISI40TA10 PO; -LISI40TA4 PO; +LOMO2.5T PO; +LOPE1CAP5 PO; +SIME80CH5 PO
[2024-12-20 08:37] VITALS: BP 167/97; O2SAT 95
== END ==
LOC: M PAL 08:24
PROVIDERS: ATTEND Physician Assistant
DX: Z51.5 Encounter for palliative care (principal); Z66 Do not resuscitate; C16.0 Malignant neoplasm of cardia; Z79.891 Long term (current) use of opiate analgesic; Z88.8 Allergy status to other drugs, medicaments and biological substances; Z79.899 Other long term (current) drug therapy; Z79.02 Long term (current) use of antithrombotics/antiplatelets; Z79.83 Long term (current) use of bisphosphonates

== ENCOUNTER 2024-12-27 15:34 | Emergency (ER) | payer OTHER ==
[~2024-12-27] VITALS: Ht 188 cm; Wt 102.6 kg
[~2024-12-27 15:34] MED LIST changes: +ACET-1515 PO; -ACET650T15 PO
[2024-12-27 15:45] VITALS: TEMP 98.1
[2024-12-27] MEDS ORDERED: ISOVUE-370 76% 100 ML VIAL As Ordered ONE (15:46)
[2024-12-27 15:52] VITALS: O2SAT 98
[2024-12-27 16:01] VITALS: BP 128/66; O2SAT 100
[2024-12-27] MEDS: HEPARIN LOCK FLUSH 100 UNITS/ML 3 ML SYRINGE IV PRN (16:20)
[2024-12-27] MEDS: SODIUM CHLORIDE 0.9% INJ 10 ML SYR IV PRN (16:20)
[2024-12-27 16:32] LABS: INR 1.07
[2024-12-27 16:34] LABS: BASO # 0.0 10^3/uL (0.0-0.2); BASO % 0.1 % (0.0-1.0); EOS # 0.0 10^3/uL (0.0-0.5); EOS % 0.2 % (0.0-3.0); LYMPH # 1.6 10^3/uL (1.5-5.0); LYMPH % 19.1 % (24.0-44.0); MONO # 0.4 10^3/uL (0.0-0.8); MONO % 4.6 % (2.0-8.0); NEUTROPHILS # 6.4 10^3/uL (1.5-8.5); NEUTROPHILS % 75.3 % (36.0-66.0); PLATELET COUNT, AUTOMATED 116 10^3/uL (150-450)
[2024-12-27 16:47] LABS: CALCIUM LEVEL 7.9 MG/DL (8.5-10.1); CARBON DIOXIDE LEVEL 22 MMOL/L (20-31); CHLORIDE LEVEL 104 MMOL/L (98-107); CK-MB VALUE MASS 4.9 NG/ML (<3.6); CPK CREATINE PHOSPHOKINASE 77 U/L (46-171); CREATININE FOR GFR 0.84 MG/DL (0.70-1.30); GLOMERULAR FILTRATION RATE > 90.0 (>56); MB/CK RELATIVE INDEX 6.36 (< OR =4); POTASSIUM SERUM 4.6 MMOL/L (3.5-5.1); SODIUM LEVEL 140 MMOL/L (136-145)
== END 2024-12-27 16:31 | disposition left against medical advice (07) ==
LOC: M ED 15:34
DX: E11.9 Type 2 diabetes mellitus without complications (principal); I10 Essential (primary) hypertension; J44.9 Chronic obstructive pulmonary disease, unspecified; F32.A Depression, unspecified; C34.90 Malignant neoplasm of unspecified part of unspecified bronchus or lung; M54.50 Low back pain, unspecified; B17.10 Acute hepatitis C without hepatic coma; F17.200 Nicotine dependence, unspecified, uncomplicated; Z88.8 Allergy status to other drugs, medicaments and biological substances; Z79.1 Long term (current) use of non-steroidal anti-inflammatories (NSAID); Z79.52 Long term (current) use of systemic steroids; Z79.02 Long term (current) use of antithrombotics/antiplatelets; Z79.899 Other long term (current) drug therapy; Z53.9 Procedure and treatment not carried out, unspecified reason
CPT/HCPCS: 70450; 70496; 70498; 80047; 80048; 82550; 82553; 84484; 85025; 85610; 85730; 93005; 93041; 94760; 96374; 99285; J1642; Q9967

== ENCOUNTER → 2024-12-29 | Outpatient (CLI) | payer OTHER ==
[~2024-12-29] MED LIST changes: +FENT75DI29 TD
== END ==
LOC: M RAD 22:25
PROVIDERS: ATTEND Family Medicine
DX: Z53.9 Procedure and treatment not carried out, unspecified reason (principal)

== ENCOUNTER → 2025-01-02 | Outpatient (CLI) | payer OTHER ==
[~2025-01-02] MED LIST changes: +ISOVUE-370 76% 100 ML VIAL As Ordered ONE
== END ==
LOC: M RAD 12:10
DX: R06.02 Shortness of breath (principal)
CPT/HCPCS: 71275; Q9967

== ENCOUNTER → 2025-01-08 | Outpatient (CLI) | payer OTHER ==
[~2025-01-08] MED LIST changes: -ISOVUE-370 76% 100 ML VIAL As Ordered ONE
== END ==
LOC: M RAD 11:34
PROVIDERS: ATTEND Internal Medicine Medical Oncology
DX: M79.89 Other specified soft tissue disorders (principal)

== ENCOUNTER → 2025-01-11 | Outpatient (CLI) | payer OTHER ==
[~2025-01-11] VITALS: Ht 188 cm; Wt 116.4 kg
[2025-01-11 14:13] VITALS: BP 149/85; O2SAT 96
== END ==
LOC: M PAL 13:58
PROVIDERS: ATTEND Physician Assistant
DX: Z51.5 Encounter for palliative care (principal); Z66 Do not resuscitate; C16.0 Malignant neoplasm of cardia; Z79.891 Long term (current) use of opiate analgesic; Z88.8 Allergy status to other drugs, medicaments and biological substances; Z79.899 Other long term (current) drug therapy; Z79.02 Long term (current) use of antithrombotics/antiplatelets

== ENCOUNTER → 2025-01-17 | Outpatient (CLI) | payer OTHER ==
[~2025-01-17] VITALS: Ht 188 cm; Wt 106.7 kg
[~2025-01-17] MED LIST changes: +FENT100D25 TOP
[2025-01-17 10:07] VITALS: BP 127/85; O2SAT 95
== END ==
LOC: M PAL 09:52
PROVIDERS: ATTEND Physician Assistant
DX: Z51.5 Encounter for palliative care (principal); Z66 Do not resuscitate; C16.0 Malignant neoplasm of cardia; Z79.891 Long term (current) use of opiate analgesic; Z88.8 Allergy status to other drugs, medicaments and biological substances; Z79.899 Other long term (current) drug therapy; Z79.02 Long term (current) use of antithrombotics/antiplatelets; Z79.83 Long term (current) use of bisphosphonates

== ENCOUNTER → 2025-01-25 | Outpatient (CLI) | payer OTHER ==
[~2025-01-25] VITALS: Ht 188 cm; Wt 107.9 kg
[~2025-01-25] MED LIST changes: +CEPH500C PO; +FENT1DIS14 TOP; +OXYC20TA2 PO
[2025-01-25 13:43] VITALS: BP 143/87; O2SAT 95
== END ==
LOC: M PAL 13:25
PROVIDERS: ATTEND Physician Assistant
DX: Z51.5 Encounter for palliative care (principal); Z66 Do not resuscitate; C16.0 Malignant neoplasm of cardia; Z92.21 Personal history of antineoplastic chemotherapy; Z79.891 Long term (current) use of opiate analgesic; Z88.8 Allergy status to other drugs, medicaments and biological substances; Z79.899 Other long term (current) drug therapy; Z79.02 Long term (current) use of antithrombotics/antiplatelets; Z79.83 Long term (current) use of bisphosphonates
CPT/HCPCS: 74177; 99215; Q9967

== ENCOUNTER → 2025-02-01 | Outpatient (CLI) | payer OTHER ==
[~2025-02-01] VITALS: Ht 188 cm; Wt 103.1 kg
[2025-02-01 11:53] VITALS: BP 153/83; O2SAT 96
== END ==
LOC: M PAL 11:27
PROVIDERS: ATTEND Physician Assistant
DX: Z51.5 Encounter for palliative care (principal); Z66 Do not resuscitate; C16.0 Malignant neoplasm of cardia; Z79.891 Long term (current) use of opiate analgesic; Z79.899 Other long term (current) drug therapy; Z88.8 Allergy status to other drugs, medicaments and biological substances; Z79.02 Long term (current) use of antithrombotics/antiplatelets; Z79.84 Long term (current) use of oral hypoglycemic drugs; Z79.83 Long term (current) use of bisphosphonates

== ENCOUNTER → 2025-03-13 | Outpatient (CLI) | payer OTHER ==
[~2025-03-13] VITALS: Ht 188 cm; Wt 99.9 kg
[~2025-03-13] MED LIST changes: +FENT1PAT25 TD
[2025-03-13 14:13] VITALS: BP 146/88; O2SAT 93
== END ==
LOC: M PAL 14:01
PROVIDERS: ATTEND Physician Assistant
DX: Z51.5 Encounter for palliative care (principal); Z66 Do not resuscitate; C16.0 Malignant neoplasm of cardia; Z79.891 Long term (current) use of opiate analgesic; Z88.6 Allergy status to analgesic agent; Z79.899 Other long term (current) drug therapy; Z79.02 Long term (current) use of antithrombotics/antiplatelets; Z79.83 Long term (current) use of bisphosphonates; Z79.84 Long term (current) use of oral hypoglycemic drugs

== ENCOUNTER → 2025-04-03 | Outpatient (CLI) | payer OTHER ==
[~2025-04-03] VITALS: Ht 188 cm; Wt 101.9 kg
[~2025-04-03] MED LIST changes: +NYST-38 PO
[2025-04-03 09:26] VITALS: BP 140/70; O2SAT 90
== END ==
LOC: M PAL 08:34
PROVIDERS: ATTEND Physician Assistant
DX: Z51.5 Encounter for palliative care (principal); Z66 Do not resuscitate; C16.0 Malignant neoplasm of cardia; Z79.891 Long term (current) use of opiate analgesic; Z88.5 Allergy status to narcotic agent; Z79.899 Other long term (current) drug therapy; Z79.02 Long term (current) use of antithrombotics/antiplatelets; Z79.83 Long term (current) use of bisphosphonates

== ENCOUNTER → 2025-04-17 | Outpatient (CLI) | payer OTHER ==
[~2025-04-17] MED LIST changes: +ISOVUE-370 76% 100 ML VIAL ONE; +PROHANCE 279.3MG/ML 15ML VIAL ONE; +PROHANCE 279.3MG/ML 5ML VIAL ONE
== END ==
LOC: M PLAIMG 08:55
PROVIDERS: ATTEND Internal Medicine Medical Oncology
DX: C16.9 Malignant neoplasm of stomach, unspecified (principal); R51.9 Headache, unspecified

== ENCOUNTER → 2025-04-24 | Outpatient (CLI) | payer OTHER ==
[~2025-04-24] VITALS: Ht 188 cm; Wt 102.5 kg
[~2025-04-24] MED LIST changes: -ISOVUE-370 76% 100 ML VIAL ONE; +MELO15TA28 PO; -PROHANCE 279.3MG/ML 15ML VIAL ONE; -PROHANCE 279.3MG/ML 5ML VIAL ONE
[2025-04-24 08:31] VITALS: BP 157/93; O2SAT 93
== END ==
LOC: M PAL 08:22
PROVIDERS: ATTEND Physician Assistant
DX: Z51.5 Encounter for palliative care (principal); Z66 Do not resuscitate; C16.0 Malignant neoplasm of cardia; Z79.891 Long term (current) use of opiate analgesic; Z79.899 Other long term (current) drug therapy; Z79.02 Long term (current) use of antithrombotics/antiplatelets; Z79.84 Long term (current) use of oral hypoglycemic drugs; Z79.83 Long term (current) use of bisphosphonates; Z88.8 Allergy status to other drugs, medicaments and biological substances

== ENCOUNTER → 2025-05-07 | Outpatient (CLI) | payer OTHER | LOC: M PLARAD 07:49 | PROVIDERS: ATTEND Internal Medicine Medical Oncology | DX: C16.9 Malignant neoplasm of stomach, unspecified (principal) | CPT/HCPCS: 78815; A9552 ==

== ENCOUNTER → 2025-05-08 | Outpatient (CLI) | payer OTHER | LOC: M PAL 08:47 | PROVIDERS: ATTEND Physician Assistant | DX: Z51.5 Encounter for palliative care (principal); Z66 Do not resuscitate; C16.0 Malignant neoplasm of cardia; Z79.891 Long term (current) use of opiate analgesic; Z99.81 Dependence on supplemental oxygen; F17.218 Nicotine dependence, cigarettes, with other nicotine-induced disorders; Z88.6 Allergy status to analgesic agent; Z79.02 Long term (current) use of antithrombotics/antiplatelets; Z79.83 Long term (current) use of bisphosphonates; Z79.52 Long term (current) use of systemic steroids; Z79.899 Other long term (current) drug therapy ==

== ENCOUNTER → 2025-05-21 | Outpatient (CLI) | payer OTHER | LOC: M PAL 08:30 | PROVIDERS: ATTEND Physician Assistant | DX: Z51.5 Encounter for palliative care (principal); Z66 Do not resuscitate; C16.0 Malignant neoplasm of cardia; Z79.891 Long term (current) use of opiate analgesic; Z99.81 Dependence on supplemental oxygen; Z79.899 Other long term (current) drug therapy; Z79.02 Long term (current) use of antithrombotics/antiplatelets; Z79.83 Long term (current) use of bisphosphonates; Z88.6 Allergy status to analgesic agent ==